=== PATIENT | female | born 1940 | race Caucasian/White ===

== ENCOUNTER 2017-12-16 14:35 | Inpatient (IN) | payer MEDICARE, OTHER, MEDICAID, SELFPAY ==
[2017-12-16 14:36] VITALS: BP 186/88; PULSE 102; RESP 18; TEMP 36.8; O2SAT 95; BMI 26.4
[2017-12-16 14:37] VITALS: BMI 26.4
--- NOTE | 2017-12-16 14:39 | CT_ITS ---
CT head/brain wo con HISTORY: Slurred speech, ITS.REASON: slurred speech ORDERING PHYSICIAN: Everton Garcia MD PATIENT AGE: 77 years COMPARISON: 07/03/2016 TECHNIQUE: Axial images obtained without contrast. Brain and bone windows reviewed. All CT scans at the facility use one or more dose reduction, viz: automated exposure control; ma/kV adjustment per patient size (including targeted exams where dose is matched to indication; i.e. head); or iterative reconstruction technique. FINDINGS: No midline shift, mass effect, intracranial hemorrhage, hydrocephalus, or extra-axial fluid collection is evident. There is generalized atrophy with hypoattenuation in the periventricular region consistent with ischemic gliotic change from microvascular disease. Scattered low density changes are present in the basal ganglia with old appearing infarctions. No acute intra or extra-axial hemorrhage is evident. The calvarium has an unremarkable appearance. No mastoid effusion. No sinus air-fluid levels.. IMPRESSION: 1. No acute intracranial hemorrhage. 2. Atrophy with chronic ischemic changes. 3. There is no evidence of intracranial hemorrhage, focal mass, or acute territorial infarction. A negative CT does not exclude an acute CVA. A follow-up head CT or MRI is recommended if neurological symptoms persist .
--- NOTE | 2017-12-16 14:40 | HMH.EDGENADL ---
ED Disposition Referrals: Jason Conway MD [Primary Care Provider] - Attestation: On 12/16/17, the high probability of a clinically significant, sudden or life threatening deterioration of the following system(s) required my full and direct attention, intervention and personal management. The time I documented below is in addition to time spent performing reported procedures but includes the following listed in this critical care notation. Medical Decision Making Vital Signs: 12/16/17 14:36 Temperature 98.3 F Temperature Source Oral Pulse Rate [Right Brachial] 102 H Respiratory Rate 18 Blood Pressure [rigth arm] 186/88 Blood Pressure Mean [rigth arm] 120 Blood Pressure Source [rigth arm] Automatic Cuff Blood Pressure Position [rigth arm] Supine 02 Sat by Pulse Oximetry 95 Oxygen Delivery Method Room Air Orders (Tests/Meds): ORDERS Category Date Time Status CT head/brain wo con Stat Cat Scan 12/16/17 14:39 Ordered Cardiac Enzymes Stat Lab 12/16/17 14:39 Ordered Complete Blood Count Auto Diff Stat Lab 12/16/17 14:39 Ordered Comprehensive Metabolic Panel Stat Lab 12/16/17 14:39 Ordered 12-lead EKG Request [ECG Request by /Enmanuel] Stat Y 12/16/17 14:39 Ordered General Adult HPI - General Chief complaint: Weakness Stated complaint: weakness Time Seen by Provider: 12/16/17 14:41 - Related Data Home Medications Medication Instructions Recorded Confirmed acetaminophen 500 mg capsule 500 mg PO Q6H PRN 12/01/17 amlodipine 10 mg tablet 10 mg PO ONCE 12/01/17 amlodipine 5 mg tablet 5 mg PO ONCE 12/01/17 aspirin 81 mg tablet,delayed 81 mg PO ONCE 12/01/17 release digoxin 125 mcg tablet 125 mcg PO ONCE 12/01/17 gabapentin 100 mg capsule 100 mg PO QHS 12/01/17 insulin glargine (U-300) 300 15 unit SUB-Q QHS 12/01/17 unit/mL (1.5 mL) subcutaneous pen lisinopril 20 mg tablet 20 mg PO ONCE 12/01/17 metformin 500 mg tablet 500 mg PO BID 12/01/17 omeprazole 20 mg capsule,delayed 20 mg PO ONCE 12/01/17 release ondansetron HCl 4 mg tablet 4 mg PO Q4H 12/01/17 polyethylene glycol 3350 17 17 g PO Q10M 12/01/17 gram/dose oral powder sennosides 8.6 mg-docusate sodium 1 tab PO QHS PRN 12/01/17 50 mg tablet sitagliptin 100 mg tablet 100 mg PO ONCE 12/01/17 trazodone 50 mg tablet 50 mg PO QHS PRN 12/01/17 trolamine salicylate 10 % topical 1 applic TOPICAL TID 12/01/17 cream tuberculin PPD 5 tub. unit/0.1 mL 0.1 ml INTRADERMA ONCE 12/01/17 intradermal injection solution Allergies Allergy/AdvReac Type Severity Reaction Status Date / Time No Known Allergies Allergy Verified 12/01/17 08:41 [facility] History Medical History: Reports:: Diabetes Mellitus Type 2, Hypertension Other Surgeries: Yes: Tubal Ligation Amputation: No Fractures: No Comment: gallbladder - Social History Smoking Status: Never smoker Alcohol Intake: never Substance Use Type: denies use Family Hx:: Hypertension, Hyperlipidemia, Cancer, Diabetes
--- NOTE | 2017-12-16 14:50 | PC.NURSE ---
to ct at this time, stroke protocol
--- NOTE | 2017-12-16 14:54 | HMH.EDGENADL ---
ED Disposition Clinical Impression: TIA (transient ischemic attack) Qualifiers: Transient cerebral ischemia type: unspecified Qualified Code(s): G45.9 - Transient cerebral ischemic attack, unspecified UTI (urinary tract infection) Qualifiers: Urinary tract infection type: site unspecified Hematuria presence: without hematuria Qualified Code(s): N39.0 - Urinary tract infection, site not specified Disposition: Still a Patient Condition on Discharge: Good - Critical Care Critical Care Time: No Attestation: On 12/16/17, the high probability of a clinically significant, sudden or life threatening deterioration of the following system(s) required my full and direct attention, intervention and personal management. The time I documented below is in addition to time spent performing reported procedures but includes the following listed in this critical care notation. Medical Decision Making - Tyler Inquiry Pt receiving controlled substance: No Vital Signs: 12/16/17 14:36 12/16/17 16:52 12/16/17 17:46 Temperature 98.3 F 98.2 F Temperature Source Oral Oral Pulse Rate [Right Brachial] 102 H 102 H Respiratory Rate 18 20 Blood Pressure [rigth arm] 186/88 161/83 Blood Pressure Mean [rigth arm] 120 109 Blood Pressure Source [rigth arm] Automatic Cuff Automatic Cuff Blood Pressure Position [rigth arm] Supine Supine 02 Sat by Pulse Oximetry 95 96 Oxygen Delivery Method Room Air Room Air Room Air 12/16/17 18:15 Temperature Temperature Source Pulse Rate [Right Brachial] Respiratory Rate Blood Pressure [rigth arm] Blood Pressure Mean [rigth arm] Blood Pressure Source [rigth arm] Blood Pressure Position [rigth arm] 02 Sat by Pulse Oximetry Oxygen Delivery Method Room Air - Lab Data Lab Results 12/16/17 14:40: WBC 6.9, RBC 3.54 L, Hgb 11.1 L, Hct 33.8 L, MCV 95.4, MCH 31.4 H, MCHC 32.9, RDW 13.6, Plt Count 274, MPV 7.1 L, Neut % (Auto) 42.2, Lymph % (Auto) 47.2, [place] % (Auto) 5.4, Eos % (Auto) 4.5, Baso % (Auto) 0.7, Neut # (Auto) 2.9, Lymph # (Auto) 3.3, [place] # (Auto) 0.4, Eos # (Auto) 0.3, Baso # (Auto) 0.1 12/16/17 14:40: Sodium 135 L, Potassium 4.2, Chloride 101, Carbon Dioxide 22, Anion Gap 16.2 H, BUN 25 H, Creatinine 1.48 H, Estimated Creat Clear 35, Estimated GFR 34 L, Est GFR ( Amer) 41 L, Glucose 338 H, Calcium 8.3 L, Total Bilirubin 0.4, AST 8 L, ALT 24, Alkaline Phosphatase 98, Total Creatine Kinase 66, CK-MB (CK-2) 0.5, CK-MB (CK-2) Rel Index 0.8, Troponin I < 0.02, Total Protein 7.9, Albumin 3.4, Globulin 4.5 H, Albumin/Globulin Ratio 0.8 L 12/16/17 14:40: PT 10.0, INR 0.93, APTT 26.8 12/16/17 14:40: Digoxin 0.50 L 12/16/17 14:40: TSH 2.31, Free T4 Index 1.9 L, Thyroxine (T4) 5.9, T3 Uptake 32 12/16/17 16:00: Urine Color Yellow, Urine Appearance Sl cloudy, Urine pH 5.5, Ur Specific [place] 1.020, Urine Protein Negative, Urine Glucose (UA) Trace, Urine Ketones Negative, Urine Blood Negative, Urine Nitrate Negative, Urine Bilirubin Negative, Urine Urobilinogen 0.2, Ur Leukocyte Esterase 1+ A, Urine RBC None, Urine WBC 20-50, Ur Squamous Epith Cells Occasional, Urine Bacteria 2+ Result diagrams: 12/16/17 14:40 12/16/17 14:40 Orders (Tests/Meds): ED MEDICATIONS Generic Name Dose Route Start Last Admin Trade Name Rick PRN Reason Stop Dose Admin Amlodipine Besylate 5 mg 12/17/17 09:00 Norvasc 5mg Tablet PO 01/16/18 08:59 DAILY SHEA Amlodipine Besylate 10 mg 12/17/17 09:00 Norvasc 10mg Tablet PO 01/16/18 08:59 DAILY SHEA Aspirin 325 mg 12/17/17 09:00 Aspirin Ec 325mg Tablet PO 01/16/18 08:59 DAILY SHEA Digoxin 125 mcg 12/17/17 09:00 Digoxin 0.125mg Tablet PO 01/16/18 08:59 DAILY SHEA Gabapentin 100 mg 12/16/17 16:52 Neurontin 100mg Capsule PO 01/15/18 16:44 QHS SHEA Ceftriaxone Sodium 1 gm/ 50 mls @ 100 mls/hr 12/17/17 16:45 Sodium Chloride IV 12/30/17 16:44 Q24H SHEA Protocol Insulin H
[2017-12-16 14:56] LABS: Basophils # 0.1 K/mm3 (0-0.2); Basophils % 0.7 % (0.1-2.0); Eosinophils # 0.3 K/mm3 (0.0-0.4); Eosinophils % 4.5 % (0.1-12.0); Hematocrit 33.8 % (37.0-47.0); Hemoglobin 11.1 g/dL (12.2-16.2); Lymphocytes # 3.3 K/mm3 (0.7-4.5); Lymphocytes % 47.2 K/mm3 (10-50); Mean Corpuscular HGB Conc 32.9 g/dL (31.8-35.4); Mean Corpuscular Hemoglobin 31.4 pg (27.0-31.2); Mean Corpuscular Volume 95.4 fl (81-99); Mean Platelet Volume 7.1 fl (7.4-10.4); Monocytes # 0.4 K/mm3 (0.1-1.0); Monocytes % 5.4 % (1.7-9.3); Neutrophils # 2.9 K/mm3 (1.8-7.8); Neutrophils % 42.2 % (37.0-80.0); Platelet Count 274 K/mm3 (142-424); Red Blood Count 3.54 M/mm3 (4.20-5.40); Red Cell Distribution Width 13.6 % (11.5-17.5); White Blood Count 6.9 K/mm3 (4.8-10.8)
--- NOTE | 2017-12-16 14:58 | ED_ITS ---
ED Disposition Clinical Impression: TIA (transient ischemic attack) Qualifiers: Transient cerebral ischemia type: unspecified Qualified Code(s): G45.9 - Transient cerebral ischemic attack, unspecified UTI (urinary tract infection) Qualifiers: Urinary tract infection type: site unspecified Hematuria presence: without hematuria Qualified Code(s): N39.0 - Urinary tract infection, site not specified Disposition: Still a Patient Condition on Discharge: Good - Critical Care Critical Care Time: No Attestation: On 12/16/17, the high probability of a clinically significant, sudden or life threatening deterioration of the following system(s) required my full and direct attention, intervention and personal management. The time I documented below is in addition to time spent performing reported procedures but includes the following listed in this critical care notation. Medical Decision Making - Tyler Inquiry Pt receiving controlled substance: No Vital Signs: 12/16/17 14:36 12/16/17 16:52 12/16/17 17:46 Temperature 98.3 F 98.2 F Temperature Source Oral Oral Pulse Rate [Right Brachial] 102 H 102 H Respiratory Rate 18 20 Blood Pressure [rigth arm] 186/88 161/83 Blood Pressure Mean [rigth arm] 120 109 Blood Pressure Source [rigth arm] Automatic Cuff Automatic Cuff Blood Pressure Position [rigth arm] Supine Supine 02 Sat by Pulse Oximetry 95 96 Oxygen Delivery Method Room Air Room Air Room Air 12/16/17 18:15 Temperature Temperature Source Pulse Rate [Right Brachial] Respiratory Rate Blood Pressure [rigth arm] Blood Pressure Mean [rigth arm] Blood Pressure Source [rigth arm] Blood Pressure Position [rigth arm] 02 Sat by Pulse Oximetry Oxygen Delivery Method Room Air - Lab Data Lab Results 12/16/17 14:40: WBC 6.9, RBC 3.54 L, Hgb 11.1 L, Hct 33.8 L, MCV 95.4, MCH 31.4 H, MCHC 32.9, RDW 13.6, Plt Count 274, MPV 7.1 L, Neut % (Auto) 42.2, Lymph % ( Auto) 47.2, [place] % (Auto) 5.4, Eos % (Auto) 4.5, Baso % (Auto) 0.7, Neut # (Auto ) 2.9, Lymph # (Auto) 3.3, [place] # (Auto) 0.4, Eos # (Auto) 0.3, Baso # (Auto) 0.1 12/16/17 14:40: Sodium 135 L, Potassium 4.2, Chloride 101, Carbon Dioxide 22, Anion Gap 16.2 H, BUN 25 H, Creatinine 1.48 H, Estimated Creat Clear 35, Estimated GFR 34 L, Est GFR ( Amer) 41 L, Glucose 338 H, Calcium 8.3 L, Total Bilirubin 0.4, AST 8 L, ALT 24, Alkaline Phosphatase 98, Total Creatine Kinase 66, CK-MB (CK-2) 0.5, CK-MB (CK-2) Rel Index 0.8, Troponin I < 0.02, Total Protein 7.9, Albumin 3.4, Globulin 4.5 H, Albumin/Globulin Ratio 0.8 L 12/16/17 14:40: PT 10.0, INR 0.93, APTT 26.8 12/16/17 14:40: Digoxin 0.50 L 12/16/17 14:40: TSH 2.31, Free T4 Index 1.9 L, Thyroxine (T4) 5.9, T3 Uptake 32 12/16/17 16:00: Urine Color Yellow, Urine Appearance Sl cloudy, Urine pH 5.5, Ur Specific [place] 1.020, Urine Protein Negative, Urine Glucose (UA) Trace, Urine Ketones Negative, Urine Blood Negative, Urine Nitrate Negative, Urine Bilirubin Negative, Urine Urobilinogen 0.2, Ur Leukocyte Esterase 1+ A, Urine RBC None, Urine WBC 20-50, Ur Squamous Epith Cells Occasional, Urine Bacteria 2+ Result diagrams: 12/16/17 14:40 12/16/17 14:40 Orders (Tests/Meds): ED MEDICATIONS Generic Name Dose Route Start Last Admin Trade Name Freq PRN Reason Stop Dose Admin Amlodipine Besylate 5 mg 12/17/17 09:00 Norvasc 5mg
--- NOTE | 2017-12-16 15:00 | PC.NURSE ---
calls stroke alert at this time. rust: 8
--- NOTE | 2017-12-16 15:01 | PC.NURSE ---
call placed to [facility]
--- NOTE | 2017-12-16 15:04 | PC.NURSE ---
on phone with dr itz colin
--- NOTE | 2017-12-16 15:18 | PC.NURSE ---
call placed to dr esteves
[2017-12-16 15:20] LABS: Activated Partial Thrombo Time 26.8 seconds (23.6-34.0); INR 0.93 (0.9-1.1)
--- NOTE | 2017-12-16 15:23 | PC.NURSE ---
on phone with dr esteves
--- NOTE | 2017-12-16 15:26 | XR_ITS ---
XR chest portable HISTORY: Slurred speech ITS.REASON: stroke symptoms ORDERING PHYSICIAN: Jason Conway MD PATIENT AGE: 77 years COMPARISON: None available FINDINGS: Normal heart size. There is some increased density in the paratracheal region on both sides consistent with goiter as seen on a previous C-spine CT of 07/03/2016. No lobar consolidation or collapse. No acute bony anomalies. IMPRESSION: No acute finding. Prominent paratracheal density consistent with goiter
[2017-12-16 15:30] LABS: Albumin Level 3.4 gm/dL (3.4-5.0); Albumin/Globulin Ratio 0.8 (1.1-1.8); Alkaline Phosphatase 98 U/L (46-116); Anion Gap 16.2 mEq/L (5-15); Bilirubin,Total 0.4 mg/dL (0.2-1.0); Blood Urea Nitrogen 25 mg/dL (7-18); CKMB Relative Index 0.8 U/L (0-4.0); Calcium 8.3 mg/dL (8.5-10.1); Carbon Dioxide 22 mmol/L (21.0-32.0); Chloride 101 mmol/L (98-107); Creatine Kinase 66 U/L (26-192); Creatine Kinase MB 0.5 ng/ml (0.0-3.6); Creatinine Clearance Estimated 35 mL/min (0-300); Creatinine,Serum 1.48 mg/dL (0.55-1.02); Estimated Glomerular Filt Rate 34 ml/min (>60); GFR (African American) 41 ML/MIN (>60); Globulin 4.5 gm/dl (1.3-3.2); Sodium 135 mmol/L (136-145); Total Protein,Serum 7.9 gm/dL (6.4-8.2); Troponin I < 0.02 ng/ml (0.00-0.06)
[2017-12-16 15:59] LABS: Free Thyroxine Index 1.9 ug/dL (5.93-13.13); T4 (Thyroxine) 5.9 ug/dl (4.7-13.3); Thyroid Stimulating Hormone 2.31 uIU/ml (0.358-3.740); Triiodothryronine (T3) Uptake 32 % (31-39)
[2017-12-16 16:02] LABS: Microscopic, Urine URINE MICROSCOPIC (MICROSCOPIC)
[2017-12-16 16:03] LABS: Appearance,Urine SL CLOUDY (Clear); Bilirubin,Urine Negative (Negative); Blood, Urine Negative (Negative); Color,Urine YELLOW (Yellow); Glucose,Urine (UA) TRACE (Negative); Ketones,Urine Negative (Negative); Leukocyte Esterase,Urine 1+ (Negative); Nitrate,Urine Negative (Negative); PH,Urine 5.5 (5.0-8.5); Protein,Urine Negative (Negative); Urobilinogen,Urine 0.2 EU/dl (0.2)
[2017-12-16 16:16] LABS: Glucose 338 mg/dL (74-106)
[2017-12-16 16:21] LABS: Alanine Aminotransferase 24 U/L (12-78)
[2017-12-16 16:22] VITALS: BMI 25.6
[2017-12-16 16:26] LABS: Potassium 4.2 mmoL/L (3.5-5.1)
[2017-12-16 16:27] LABS: Bacteria,Urine 2+ /lpf; Squamous Epithelial Cell,Urine Occasional #/hpf (0-5); WBC,Urine 20-50 #/hpf (0-3)
[2017-12-16 16:32] LABS: Aspartate Amino Transferase 8 U/L (15-37)
[2017-12-16 16:52] VITALS: BP 161/83; PULSE 102; RESP 20; TEMP 36.8; O2SAT 96
[2017-12-16 18:19] VITALS: BP 126/85; PULSE 80; RESP 18; TEMP 36.7; O2SAT 99
[2017-12-16 20:00] VITALS: BP 149/85; PULSE 97; RESP 16; TEMP 37.3; O2SAT 95
[2017-12-16 21:00] VITALS: O2SAT 95
[2017-12-16 21:42] LABS: POC Glucose,Bedside 215 mg/dL (70-110)
[2017-12-17] VITALS (8 sets, daily range): BP systolic 139–185; BP diastolic 73–89; PULSE 89–98; RESP 16–18; TEMP 37–37.5; O2SAT 95–96
--- NOTE | 2017-12-17 05:28 | PC.NURSE ---
Pt has rested well this shift with no complaints of pain or discomfort. Pt speech continues to be slurred but able to make out the words. Pt is alert to name, , and place but cannot recall the year. Pt is stronger on the left side than the right, she states she is normally like this. PERRLA present. Lung sounds clear t/o. BS active in all 4 qauds. VSS. No acute distress noted. Will continue to monitor.
[2017-12-17 06:34] LABS: POC Glucose,Bedside 205 mg/dL (70-110)
--- NOTE | 2017-12-17 07:27 | PC.NURSE ---
angie mcgraw rn
--- NOTE | 2017-12-17 09:33 | HMH.HP ---
*Admission Date: 12/16/17 *Chief complaint: Right-sided weakness and dysarthria *History of present illness: 87-year-old white female with known stroke disease with history of right-sided hemiparesis who has been a resident of local nursing facility over the past several months, who yesterday morning was noted by nursing aides there to have some increasing speech issues, dysarthria and word finding difficulties and right-sided weakness. Was sent to the emergency department. In the emergency department her symptoms had somewhat improved, CT scan was negative for bleeding, she was found to be hypertensive. [facility] stroke team was consulted, they felt that aggressive measures were not indicated in her situation and her family did not wish her to be transferred to [place]. She is admitted here to the hospital for further evaluation. [facility] History I have reviewed the patient's past medical history: Yes Medical History: Reports:: Atrial Fibrillation, Cerebrovascular Accident, Diabetes Mellitus Type 2, Hyperlipidemia, Hypertension, Transient Ischemic Attacks (TIA) Denies:: Cancer, Diabetes Mellitus Type 1, MRSA Other Medical History: Reports: Arthritis, Hypothyroidism Other Surgeries: Yes: Colonoscopy, EGD, Tubal Ligation Amputation: No Fractures: No Comment: Stroke with residual right-sided weakness - *Social History Educational Level: Completed High School Smoking Status: Unknown if ever smoked Tobacco Type: cigarettes Alcohol Intake: never Substance Use Type: denies use Occupational Status: retired, disabled Housing: senior living Household Members: other - Psychiatric History Expresses thoughts of harming self/others: None Suicide Plan Description: No Plan *Family Hx:: Hypertension, Hyperlipidemia, Cancer, Diabetes Review of Systems - Review of Systems Negative for cardiac or pulmonary issues. Negative for pains, GI issues or breathing difficulties. No skin rashes recently. See HPI for neuro issues - *Neurologic Denies headache(s) Meds Home Medications Medication Instructions Recorded Confirmed Type acetaminophen 500 mg capsule 500 mg PO Q6H PRN 12/01/17 12/16/17 History amlodipine 10 mg tablet 10 mg PO ONCE 12/01/17 12/16/17 History amlodipine 5 mg tablet 5 mg PO ONCE 12/01/17 12/16/17 History aspirin 81 mg tablet,delayed 81 mg PO ONCE 12/01/17 12/16/17 History release digoxin 125 mcg tablet 125 mcg PO ONCE 12/01/17 12/16/17 History gabapentin 100 mg capsule 100 mg PO QHS 12/01/17 12/16/17 History insulin glargine (U-300) 300 15 unit SUB-Q QHS 12/01/17 12/16/17 History unit/mL (1.5 mL) subcutaneous pen lisinopril 20 mg tablet 20 mg PO ONCE 12/01/17 12/16/17 History metformin 500 mg tablet 500 mg PO BID 12/01/17 12/16/17 History omeprazole 20 mg capsule,delayed 20 mg PO ONCE 12/01/17 12/16/17 History release ondansetron HCl 4 mg tablet 4 mg PO Q4H 12/01/17 12/16/17 History polyethylene glycol 3350 17 17 g PO Q10M 12/01/17 12/16/17 History gram/dose oral powder sennosides 8.6 mg-docusate sodium 1 tab PO QHS PRN 12/01/17 12/16/17 History 50 mg tablet sitagliptin 100 mg tablet 100 mg PO ONCE 12/01/17 12/16/17 History trazodone 50 mg tablet 50 mg PO QHS PRN 12/01/17 12/16/17 History trolamine salicylate 10 % topical 1 applic TOPICAL TID 12/01/17 12/16/17 History cream tuberculin PPD 5 tub. unit/0.1 mL 0.1 ml INTRADERMA ONCE 12/01/17 12/16/17 History intradermal injection solution Allergies Allergy/AdvReac Type Severity Reaction Status Date / Time No Known Allergies Allergy Verified 12/01/17 08:41 Exam Vital signs and Labs for Last 24 Hours: Temp Pulse Resp BP Pulse Ox 98.6 F 98 H 16 158/78 95 12/17/17 07:29 12/17/17 07:29 12/17/17 07:29 12/17/17 07:29 12/17/17 07:29 Laboratory Results - last 24 hr 12/16/17 20:52: POC Glucose 215 12/17/17 06:11: POC Glucose 205 I & O for Last 24 hours: Intake & Output 12/14/17 12/15/17 12/16/17 12/17/17 11:59 11:
--- NOTE | 2017-12-17 09:36 | P.HP_ITS ---
*Admission Date: 12/16/17 *Chief complaint: Right-sided weakness and dysarthria *History of present illness: 87-year-old white female with known stroke disease with history of right-sided hemiparesis who has been a resident of local nursing facility over the past several months, who yesterday morning was noted by nursing aides there to have some increasing speech issues, dysarthria and word finding difficulties and right-sided weakness. Was sent to the emergency department. In the emergency department her symptoms had somewhat improved, CT scan was negative for bleeding , she was found to be hypertensive. [facility] stroke team was consulted, they felt that aggressive measures were not indicated in her situation and her family did not wish her to be transferred to [place]. She is admitted here to the hospital for further evaluation. [facility] History I have reviewed the patient's past medical history: Yes Medical History: Reports:: Atrial Fibrillation, Cerebrovascular Accident, Diabetes Mellitus Type 2, Hyperlipidemia, Hypertension, Transient Ischemic Attacks (TIA) Denies:: Cancer, Diabetes Mellitus Type 1, MRSA Other Medical History: Reports: Arthritis, Hypothyroidism Other Surgeries: Yes: Colonoscopy, EGD, Tubal Ligation Amputation: No Fractures: No Comment: Stroke with residual right-sided weakness - *Social History Educational Level: Completed High School Smoking Status: Unknown if ever smoked Tobacco Type: cigarettes Alcohol Intake: never Substance Use Type: denies use Occupational Status: retired, disabled Housing: [facility] Household Members: other - Psychiatric History Expresses thoughts of harming self/others: None Suicide Plan Description: No Plan *Family Hx:: Hypertension, Hyperlipidemia, Cancer, Diabetes Review of Systems - Review of Systems Negative for cardiac or pulmonary issues. Negative for pains, GI issues or breathing difficulties. No skin rashes recently. See HPI for neuro issues - *Neurologic Denies headache(s) Meds Home Medications Medication Instructions Recorded Confirmed Type acetaminophen 500 mg capsule 500 mg PO Q6H PRN 12/01/17 12/16/17 History amlodipine 10 mg tablet 10 mg PO ONCE 12/01/17 12/16/17 History amlodipine 5 mg tablet 5 mg PO ONCE 12/01/17 12/16/17 History aspirin 81 mg tablet,delayed 81 mg PO ONCE 12/01/17 12/16/17 History release digoxin 125 mcg tablet 125 mcg PO ONCE 12/01/17 12/16/17 History gabapentin 100 mg capsule 100 mg PO QHS 12/01/17 12/16/17 History insulin glargine (U-300) 300 15 unit SUB-Q QHS 12/01/17 12/16/17 History unit/mL (1.5 mL) subcutaneous pen lisinopril 20 mg tablet 20 mg PO ONCE 12/01/17 12/16/17 History metformin 500 mg tablet 500 mg PO BID 12/01/17 12/16/17 History omeprazole 20 mg capsule,delayed 20 mg PO ONCE 12/01/17 12/16/17 History release ondansetron HCl 4 mg tablet 4 mg PO Q4H 12/01/17 12/16/17 History polyethylene glycol 3350 17 17 g PO Q10M 12/01/17 12/16/17 History gram/dose oral powder sennosides 8.6 mg-docusate sodium 1 tab PO QHS PRN 12/01/17 12/16/17 History 50 mg tablet sitagliptin 100 mg tablet 100 mg PO ONCE 12/01/17 12/16/17 History trazodone 50 mg tablet 50 mg PO QHS PRN 12/01/17 12/16/17 History trolamine salicylate 10 % topical 1 applic TOPICAL TID 12/01/17 12/16/17 History cream tuberculin PPD 5 tub. unit/0.1 mL 0.1 ml INTRADERMA ONCE 12/01/17 12/16/17 History intradermal injection solution Allergie
--- NOTE | 2017-12-17 10:08 | HMH.ACPN2 ---
Internal Medicine - PN: Subj *Date: 12/17/17 *Time: 10:08 Interval history: Patient rested well, ate well last night, no problems chewing or swallowing her food according to nursing staff. Has a headache this morning. Exam Vital signs and Labs for Last 24 Hours: Temp Pulse Resp BP Pulse Ox 98.6 F 98 H 16 158/78 95 12/17/17 07:29 12/17/17 09:51 12/17/17 07:29 12/17/17 07:29 12/17/17 07:29 Laboratory Results - last 24 hr 12/16/17 20:52: POC Glucose 215 12/17/17 06:11: POC Glucose 205 I & O for Last 24 hours: Intake & Output 12/14/17 12/15/17 12/16/17 12/17/17 11:59 11:59 11:59 11:59 Intake Total Balance Narrative: Blood pressure well controlled, patient is alert, follows commands, right facial drooping continues. Right-sided hemiparesis continues. She is able to leadership program associate markedly diminished strength in the right hand, able to slightly lift her right leg off the bed, but otherwise continues to have significant muscle weakness. 2/5 in the right arm, 3/5 in the right leg. Lungs are clear, heart rate regular. Abdomen soft, no swelling or perfusion deficits. Assessment and Plan (1) Ischemic stroke diagnosed during current admission Current visit: Yes Status: Acute Category: Medical Code(s): I63.9 - Cerebral infarction, unspecified Completed stroke. Repeat CT scan tomorrow. Watch diet carefully today. Lovenox today. We will research which anticoagulation agent she had a problem with in 2014. Consider clopidogrel given failed aspirin therapy. (2) Hypertension, essential Current visit: Yes Status: Acute Category: Medical Code(s): I10 - Essential (primary) hypertension (3) TIA (transient ischemic attack) Current visit: Yes Status: Acute Qualifiers: Transient cerebral ischemia type: unspecified Qualified Code(s): G45.9 - Transient cerebral ischemic attack, unspecified Category: Medical Code(s): G45.9 - Transient cerebral ischemic attack, unspecified (4) UTI (urinary tract infection) Current visit: Yes Status: Acute Qualifiers: Urinary tract infection type: site unspecified Hematuria presence: without hematuria Qualified Code(s): N39.0 - Urinary tract infection, site not specified Category: Medical Code(s): N39.0 - Urinary tract infection, site not specified Continue ceftriaxone. Await cultures.
--- NOTE | 2017-12-17 11:19 | HMH.PHAVTE ---
[facility] Pharmacy VTE Monitoring - Patient Demographics Admission date: 12/16/17 Report Date: 12/17/17 Time: 11:19 Allergies/Adverse Reactions: Patient Allergies No Known Allergies Allergy (Verified 12/01/17 08:41) Height: 1.65 m Weight: 69.85 kg Patient Problems: Current Active Problems TIA (transient ischemic attack) (Acute) UTI (urinary tract infection) (Acute) Ischemic stroke diagnosed during current admission (Acute) Hypertension, essential (Acute) - VTE Risk Labs: VTE Related Lab Results Hgb 11.1 g/dL (12.2-16.2) L 12/16/17 14:40 Hct 33.8 % (37.0-47.0) L 12/16/17 14:40 Plt Count 274 K/mm3 (142-424) 12/16/17 14:40 PT 10.0 seconds (9.4-11.8) 12/16/17 14:40 INR 0.93 (0.9-1.1) 12/16/17 14:40 APTT 26.8 seconds (23.6-34.0) 12/16/17 14:40 BUN 25 mg/dL (7-18) H 12/16/17 14:40 Creatinine 1.48 mg/dL (0.55-1.02) H 12/16/17 14:40 Estimated Creat Clear 35 mL/min (0-300) 12/16/17 14:40 Was VTE Risk Assessment Performed: Yes VTE Score: 3 VTE Risk Level: Low Risk - Prophylaxis VTE Prophylaxis Ordered?: Yes Types of VTE Prophylaxis: Pharmacological Pharmacologic Type: Enoxaparin - VTE Diagnosis Confirmed Treatment or plan recommended: Continue Current Treatment
[2017-12-17 11:51] LABS: POC Glucose,Bedside 190 mg/dL (70-110)
[2017-12-17 17:03] LABS: POC Glucose,Bedside 201 mg/dL (70-110)
[2017-12-17 21:37] LABS: POC Glucose,Bedside 208 mg/dL (70-110)
--- NOTE | 2017-12-17 21:53 | PC.NURSE ---
PT REFUSED 2200 LOVENOX. RN ASKED PT X5. PT STATED THE SHOT WON'T HURT BECAUSE I'M NOT LETTING YOU GIVE IT TO ME. THE BENEFITS OF THE MEDICATION DISCUSSED WITH PATIENT. PT CONTINUED TO REFUSE MEDICATION. WILL CONTINUE TO MONITOR.
[2017-12-18] VITALS (8 sets, daily range): BP systolic 138–188; BP diastolic 67–88; PULSE 85–698; RESP 17–24; TEMP 36.9–37.4; O2SAT 94–96
--- NOTE | 2017-12-18 03:33 | PC.NURSE ---
PT HAS RESTED WELL DURING SHIFT. PT REQUESTED TRAZODONE PRN FOR SLEEP AT 2100 DecideQuick. PT REFUSED 2200 LOVENOX. BENEFITS OF MEDICATION EXPLAINED, RN ASKED PT X5. PT CONTINUED TO REFUSE INJECTION. PT STATED THE SHOT WONT HURT ME BECAUSE I'M NOT LETTING YOU GIVE IT TO ME. PT IS ALERT AND ORIENTED X4. LEFT SIDE STRONGER THAN RIGHT, BASELINE. PERRLA PRESENT. LUNG SOUNDS CLEAR THROUGHOUT. BOWEL SOUNDS ACTIVE IN ALL 4 QUADS. PT DENIES PAIN. VSS. NO ACUTE DISTRESS. SAFETY MEASURES IN PLACE, CALL LIGHT WITHIN REACH. WILL CONTINUE TO MONITOR.
[2017-12-18 06:43] LABS: POC Glucose,Bedside 246 mg/dL (70-110)
--- NOTE | 2017-12-18 07:00 | CT_ITS ---
CT head/brain wo con HISTORY: Right-sided hemiparesis, right-sided weakness ITS.REASON: re-eval CVA - right hemiparesis ORDERING PHYSICIAN: Jason Conway MD PATIENT AGE: 77 years COMPARISON: 12/16/2017 TECHNIQUE: Axial images obtained without contrast. Brain and bone windows reviewed. All CT scans at the facility use one or more dose reduction, viz: automated exposure control; ma/kV adjustment per patient size (including targeted exams where dose is matched to indication; i.e. head); or iterative reconstruction technique. FINDINGS: There is atrophy with periventricular ischemic gliotic change. Old bilateral lacunar infarctions once again noted. No midline shift or mass effect. No acute intracranial hemorrhage. No large area of acute territorial infarction identified. IMPRESSION: 1. Atrophy with chronic ischemic changes 2. No acute findings. 3. Consider MRI with diffusion-weighted imaging for further evaluation if symptoms persist
[2017-12-18 07:20] LABS: Basophils % 0.5 % (0.1-2.0); Eosinophils # 0.3 K/mm3 (0.0-0.4); Hematocrit 35.6 % (37.0-47.0); Hemoglobin 11.8 g/dL (12.2-16.2); Lymphocytes # 3.2 K/mm3 (0.7-4.5); Lymphocytes % 38.4 K/mm3 (10-50); Mean Corpuscular HGB Conc 33.1 g/dL (31.8-35.4); Mean Corpuscular Hemoglobin 31.4 pg (27.0-31.2); Mean Corpuscular Volume 94.8 fl (81-99); Mean Platelet Volume 7.2 fl (7.4-10.4); Monocytes # 0.4 K/mm3 (0.1-1.0); Monocytes % 4.6 % (1.7-9.3); Neutrophils # 4.3 K/mm3 (1.8-7.8); Neutrophils % 52.6 % (37.0-80.0); Platelet Count 273 K/mm3 (142-424); Red Blood Count 3.75 M/mm3 (4.20-5.40); Red Cell Distribution Width 13.8 % (11.5-17.5); White Blood Count 8.2 K/mm3 (4.8-10.8)
[2017-12-18 07:27] LABS: Anion Gap 15.4 mEq/L (5-15); Blood Urea Nitrogen 26 mg/dL (7-18); Carbon Dioxide 23 mmol/L (21.0-32.0); Chloride 102 mmol/L (98-107); Creatinine Clearance Estimated 37 mL/min (0-300); Creatinine,Serum 1.39 mg/dL (0.55-1.02); Estimated Glomerular Filt Rate 37 ml/min (>60); GFR (African American) 44 ML/MIN (>60); Glucose 241 mg/dL (74-106); Potassium 4.4 mmoL/L (3.5-5.1); Sodium 136 mmol/L (136-145)
--- NOTE | 2017-12-18 08:51 | HMH.ACPN2 ---
Internal Medicine - PN: Subj *Date: 12/18/17 *Time: 08:51 Interval history: Overall patient feels pretty good. Refused her Lovenox injection this morning. No further neurologic issues. Exam Vital signs and Labs for Last 24 Hours: Temp Pulse Resp BP Pulse Ox 99.0 F 90 18 188/88 96 12/18/17 07:38 12/18/17 08:04 12/18/17 07:38 12/18/17 07:38 12/18/17 07:38 Laboratory Results - last 24 hr 12/17/17 11:33: POC Glucose 190 12/17/17 16:42: POC Glucose 201 12/17/17 20:30: POC Glucose 208 12/18/17 05:30: POC Glucose 246 12/18/17 07:02: WBC 8.2, RBC 3.75 L, Hgb 11.8 L, Hct 35.6 L, MCV 94.8, MCH 31.4 H, MCHC 33.1, RDW 13.8, Plt Count 273, MPV 7.2 L, Neut % (Auto) 52.6, Lymph % (Auto) 38.4, [place] % (Auto) 4.6, Eos % (Auto) 4.0, Baso % (Auto) 0.5, Neut # (Auto) 4.3, Lymph # (Auto) 3.2, [place] # (Auto) 0.4, Eos # (Auto) 0.3, Baso # (Auto) 0.0 12/18/17 07:02: Sodium 136, Potassium 4.4, Chloride 102, Carbon Dioxide 23, Anion Gap 15.4 H, BUN 26 H, Creatinine 1.39 H, Estimated Creat Clear 37, Estimated GFR 37 L, Est GFR ( Amer) 44 L, Glucose 241 H I & O for Last 24 hours: Intake & Output 12/15/17 12/16/17 12/17/17 12/18/17 11:59 11:59 11:59 11:59 Intake Total 810 / 810 120 / 120 Balance 810 / 810 120 / 120 Weight 153 lb 15.886 oz Narrative: Pleasant, awake, talkative, right droop of the face noted. Continues to have a dense right hemiparesis of the arm, leg is slightly better, no changes over exam yesterday. Lungs are clear. Assessment and Plan (1) Ischemic stroke diagnosed during current admission Current visit: Yes Status: Acute Category: Medical Code(s): I63.9 - Cerebral infarction, unspecified (2) Hypertension, essential Current visit: Yes Status: Acute Category: Medical Code(s): I10 - Essential (primary) hypertension (3) TIA (transient ischemic attack) Current visit: Yes Status: Acute Qualifiers: Transient cerebral ischemia type: unspecified Qualified Code(s): G45.9 - Transient cerebral ischemic attack, unspecified Category: Medical Code(s): G45.9 - Transient cerebral ischemic attack, unspecified (4) UTI (urinary tract infection) Current visit: Yes Status: Acute Qualifiers: Urinary tract infection type: site unspecified Hematuria presence: without hematuria Qualified Code(s): N39.0 - Urinary tract infection, site not specified Category: Medical Code(s): N39.0 - Urinary tract infection, site not specified - Assessment and plan all Dx Assessment and Plan for all problems:: Patient is stable. Cautiously start clopidogrel today. Plan to transfer back to nursing facility for expanded PT/speech therapy tomorrow.
--- NOTE | 2017-12-18 08:55 | P.PN_ITS ---
Internal Medicine - PN: Subj *Date: 12/18/17 *Time: 08:51 Interval history: Overall patient feels pretty good. Refused her Lovenox injection this morning. No further neurologic issues. Exam Vital signs and Labs for Last 24 Hours: Temp Pulse Resp BP Pulse Ox 99.0 F 90 18 188/88 96 12/18/17 07:38 12/18/17 08:04 12/18/17 07:38 12/18/17 07:38 12/18/17 07:38 Laboratory Results - last 24 hr 12/17/17 11:33: POC Glucose 190 12/17/17 16:42: POC Glucose 201 12/17/17 20:30: POC Glucose 208 12/18/17 05:30: POC Glucose 246 12/18/17 07:02: WBC 8.2, RBC 3.75 L, Hgb 11.8 L, Hct 35.6 L, MCV 94.8, MCH 31.4 H, MCHC 33.1, RDW 13.8, Plt Count 273, MPV 7.2 L, Neut % (Auto) 52.6, Lymph % ( Auto) 38.4, [place] % (Auto) 4.6, Eos % (Auto) 4.0, Baso % (Auto) 0.5, Neut # (Auto ) 4.3, Lymph # (Auto) 3.2, [place] # (Auto) 0.4, Eos # (Auto) 0.3, Baso # (Auto) 0.0 12/18/17 07:02: Sodium 136, Potassium 4.4, Chloride 102, Carbon Dioxide 23, Anion Gap 15.4 H, BUN 26 H, Creatinine 1.39 H, Estimated Creat Clear 37, Estimated GFR 37 L, Est GFR ( Amer) 44 L, Glucose 241 H I & O for Last 24 hours: Intake & Output 12/15/17 12/16/17 12/17/17 12/18/17 11:59 11:59 11:59 11:59 Intake Total 810 / 810 120 / 120 Balance 810 / 810 120 / 120 Weight 153 lb 15.886 oz Narrative: Pleasant, awake, talkative, right droop of the face noted. Continues to have a dense right hemiparesis of the arm, leg is slightly better, no changes over exam yesterday. Lungs are clear. Assessment and Plan (1) Ischemic stroke diagnosed during current admission Current visit: Yes Status: Acute Category: Medical Code(s): I63.9 - Cerebral infarction, unspecified (2) Hypertension, essential Current visit: Yes Status: Acute Category: Medical Code(s): I10 - Essential (primary) hypertension (3) TIA (transient ischemic attack) Current visit: Yes Status: Acute Qualifiers: Transient cerebral ischemia type: unspecified Qualified Code(s): G45.9 - Transient cerebral ischemic attack, unspecified Category: Medical Code(s): G45.9 - Transient cerebral ischemic attack, unspecified (4) UTI (urinary tract infection) Current visit: Yes Status: Acute Qualifiers: Urinary tract infection type: site unspecified Hematuria presence: without hematuria Qualified Code(s): N39.0 - Urinary tract infection, site not specified Category: Medical Code(s): N39.0 - Urinary tract infection, site not specified - Assessment and plan all Dx Assessment and Plan for all problems:: Patient is stable. Cautiously start clopidogrel today. Plan to transfer back to nursing facility for expanded PT/speech therapy tomorrow.
[2017-12-18 11:27] LABS: POC Glucose,Bedside 361 mg/dL (70-110)
[2017-12-18 16:40] LABS: POC Glucose,Bedside 278 mg/dL (70-110)
[2017-12-18 21:03] LABS: POC Glucose,Bedside 248 mg/dL (70-110)
[2017-12-19] VITALS: BP 134/73; PULSE 89; RESP 22; TEMP 36.9; O2SAT 95
[2017-12-19 04:00] VITALS: BP 146/79; PULSE 89; RESP 20; TEMP 36.5; O2SAT 96
--- NOTE | 2017-12-19 04:24 | PC.NURSE ---
PT RESTED WELL THIS SHIFT. PT IS FLACCID TO RIGHT ARM, AND RIGHT LEG. PT IS A&O. NO ACUTE CHANGES THIS SHIFT. VSS. MEDS ADMIN PER MAR. NO OTHER CONCERNS AT THIS TIME, WILL CONT. TO MONITOR.
[2017-12-19 06:22] LABS: POC Glucose,Bedside 246 mg/dL (70-110)
--- NOTE | 2017-12-19 07:24 | PC.NURSE ---
REPORT GIVEN TO Prakash BLACK RN
[2017-12-19 07:52] VITALS: BP 141/68; PULSE 99; RESP 20; TEMP 37; O2SAT 97
--- NOTE | 2017-12-19 08:19 | HMH.DCSUM ---
General - General Admission date: 12/16/17 Discharge date: 12/19/17 HPI HPI: 87-year-old white female with known stroke disease with history of right-sided hemiparesis who has been a resident of local nursing facility over the past several months, who yesterday morning was noted by nursing aides there to have some increasing speech issues, dysarthria and word finding difficulties and right-sided weakness. Was sent to the emergency department. In the emergency department her symptoms had somewhat improved, CT scan was negative for bleeding, she was found to be hypertensive. [facility] stroke team was consulted, they felt that aggressive measures were not indicated in her situation and her family did not wish her to be transferred to [place]. She is admitted here to the hospital for further evaluation. Hospital Course Hospital Course: Patient was admitted, placed on neurologic monitoring. She had no further progression of her neurologic deficits, but unfortunately had really no improvement. She continued to have her right hemiparesis and right facial drooping throughout her hospital course, confirming the diagnosis of a completed ischemic stroke. CT scan was repeated 48 hours after admission, showing no bleeding, no significant change in her neurologic anatomy. She ate well, but was much weaker. Lovenox was started but she declined this because of the injection pain issues. Clopidogrel was started and she tolerated this well. This morning she is unchanged, she will be transferred back to her long-term. She will need aggressive skilled care for physical therapy/occupational/speech therapy. She will continue low-dose aspirin and clopidogrel, she will need CBC and BMP done in 4 days. She will maintain her DNR status. Objective Vital signs: Temp Pulse Resp BP Pulse Ox 98.6 F 99 H 20 141/68 97 12/19/17 07:52 12/19/17 07:52 12/19/17 07:52 12/19/17 07:52 12/19/17 07:52 Narrative: Patient is alert. Pleasant. Talkative. Right facial droop noted. Right arm hemiparesis noted. She has 2/5 strength, can squeeze my hand very lightly. Right leg has 3/5 strength. Is able to wiggle her toes. Can lift her leg very minimally against gravity. Strength is normal on the left side. Heart rate regular, lungs are clear, abdomen soft and nontender, no perfusion deficits. Results Labs on day of discharge: Labs from last 24 hours 12/19/17 12/18/17 12/18/17 06:11 20:12 16:14 POC Glucose 246 248 278 12/18/17 11:07 POC Glucose 361 DS: Diagnosis - Discharge Diagnosis (1) Ischemic stroke diagnosed during current admission Status: Acute (2) Hypertension, essential Status: Acute (3) TIA (transient ischemic attack) Status: Acute (4) UTI (urinary tract infection) Status: Acute Discharge Plan - Patient Discharge Instructions ACTIVITY: Continue current activity DIET: continue same diet - Follow up Plan Follow up with: Beth Coats APRN [Nurse Practitioner] - 12/27/17 Disposition: er [facility] Home Medications: Home Medications Medication Instructions Recorded Confirmed Type acetaminophen 500 mg capsule 500 mg PO BID 12/01/17 12/17/17 History amlodipine 10 mg tablet 10 mg PO DAILY 12/01/17 12/17/17 History digoxin 125 mcg tablet 125 mcg PO Q48H 12/01/17 12/17/17 History gabapentin 100 mg capsule 100 mg PO QHS 12/01/17 12/16/17 History insulin glargine (U-300) 300 16 unit SUB-Q HS 12/01/17 12/17/17 History unit/mL (1.5 mL) subcutaneous pen lisinopril 20 mg tablet 20 mg PO DAILY 12/01/17 12/17/17 History metformin 500 mg tablet 500 mg PO DAILY 12/01/17 12/17/17 History omeprazole 20 mg capsule,delayed 20 mg PO DAILY 12/01/17 12/17/17 History release ondansetron HCl 4 mg tablet 4 mg PO BIDP PRN 12/01/17 12/17/17 History polyethylene glycol 3350 17 17 g PO DAILY 12/01/17 12/17/17 History gram/dose oral powder sennosides 8.6 mg-docusate so
--- NOTE | 2017-12-19 08:24 | P.DS_ITS ---
General - General Admission date: 12/16/17 Discharge date: 12/19/17 HPI HPI: 87-year-old white female with known stroke disease with history of right-sided hemiparesis who has been a resident of local nursing facility over the past several months, who yesterday morning was noted by nursing aides there to have some increasing speech issues, dysarthria and word finding difficulties and right-sided weakness. Was sent to the emergency department. In the emergency department her symptoms had somewhat improved, CT scan was negative for bleeding , she was found to be hypertensive. [facility] stroke team was consulted, they felt that aggressive measures were not indicated in her situation and her family did not wish her to be transferred to [place]. She is admitted here to the hospital for further evaluation. Hospital Course Hospital Course: Patient was admitted, placed on neurologic monitoring. She had no further progression of her neurologic deficits, but unfortunately had really no improvement. She continued to have her right hemiparesis and right facial drooping throughout her hospital course, confirming the diagnosis of a completed ischemic stroke. CT scan was repeated 48 hours after admission, showing no bleeding, no significant change in her neurologic anatomy. She ate well, but was much weaker. Lovenox was started but she declined this because of the injection pain issues. Clopidogrel was started and she tolerated this well. This morning she is unchanged, she will be transferred back to her senior living. She will need aggressive skilled care for physical therapy/occupational/speech therapy. She will continue low-dose aspirin and clopidogrel, she will need CBC and BMP done in 4 days. She will maintain her DNR status. Objective Vital signs: Temp Pulse Resp BP Pulse Ox 98.6 F 99 H 20 141/68 97 12/19/17 07:52 12/19/17 07:52 12/19/17 07:52 12/19/17 07:52 12/19/17 07:52 Narrative: Patient is alert. Pleasant. Talkative. Right facial droop noted. Right arm hemiparesis noted. She has 2/5 strength, can squeeze my hand very lightly. Right leg has 3/5 strength. Is able to wiggle her toes. Can lift her leg very minimally against gravity. Strength is normal on the left side. Heart rate regular, lungs are clear, abdomen soft and nontender, no perfusion deficits. Results Labs on day of discharge: Labs from last 24 hours 12/19/17 12/18/17 12/18/17 06:11 20:12 16:14 POC Glucose 246 248 278 12/18/17 11:07 POC Glucose 361 DS: Diagnosis - Discharge Diagnosis (1) Ischemic stroke diagnosed during current admission Status: Acute (2) Hypertension, essential Status: Acute (3) TIA (transient ischemic attack) Status: Acute (4) UTI (urinary tract infection) Status: Acute Discharge Plan - Patient Discharge Instructions ACTIVITY: Continue current activity DIET: continue same diet - Follow up Plan Follow up with: Beth Coats APRN [Nurse Practitioner] - 12/27/17 Disposition: er SNF Home Medications: Home Medications Medication Instructions Recorded Confirmed Type acetaminophen 500 mg capsule 500 mg PO BID 12/01/17 12/17/17 History amlodipine 10 mg tablet 10 mg PO DAILY 12/01/17 12/17/17 History digoxin 125 mcg tablet 125 mcg PO Q48H 12/01/17 12/17/17 History
[2017-12-19 08:40] VITALS: PULSE 100
--- NOTE | 2017-12-19 09:52 | SW/DCPLANNER ---
PATIENT IS AN ESTABLISHED PATIENT WITH [facility]...SHE WILL RETURN BACK THERE AND WILL BE SKILLED UNDER HER MEDICARE A BENEFIT. SHE IS DISCHARGING BACK THERE TODAY....[facility] HAS BEEN NOTIFIED OF HER RETURN..
[2017-12-19 12:05] LABS: POC Glucose,Bedside 269 mg/dL (70-110)
== END 2017-12-19 13:30 | DRG 65 ==
LOC: ER 14:39 → 2ND 15:45
PROVIDERS: Admitting Provider Internal Medicine Adolescent Medicine; Emergency Provider Emergency Medicine; Family Provider Internal Medicine Adolescent Medicine; PCP Internal Medicine Adolescent Medicine; Visit Provider Internal Medicine Adolescent Medicine
DX: I63.9 Cerebral infarction, unspecified (principal); N39.0 Urinary tract infection, site not specified; I48.91 Unspecified atrial fibrillation; I69.351 Hemiplegia and hemiparesis following cerebral infarction affecting right dominant side; I63.8 Other cerebral infarction; I10 Essential (primary) hypertension; E11.9 Type 2 diabetes mellitus without complications; R29.810 Facial weakness; R47.1 Dysarthria and anarthria; R29.708 NIHSS score 8
CPT/HCPCS: 36415; 70450; 71045; 80048; 80053; 80162; 81001; 82550; 82553; 82962; 84436; 84443; 84479; 84484; 85025; 85610; 85730; 87086; 87088; 87186; 93005; 99211; 99284

== ENCOUNTER 2018-04-04 19:40 | Observation (INO) ==
[2018-04-04 20:19] LABS: Basophils # 0.1 K/mm3 (0-0.2); Basophils % 0.8 % (0.1-2.0); Eosinophils # 0.3 K/mm3 (0.0-0.4); Eosinophils % 3.5 % (0.1-12.0); Hematocrit 35.3 % (37.0-47.0); Hemoglobin 11.1 g/dL (12.2-16.2); Lymphocytes # 2.4 K/mm3 (0.7-4.5); Mean Corpuscular HGB Conc 31.3 g/dL (31.8-35.4); Mean Corpuscular Hemoglobin 29.6 pg (27.0-31.2); Mean Corpuscular Volume 94.5 fl (81-99); Monocytes # 0.4 K/mm3 (0.1-1.0); Monocytes % 5.2 % (1.7-9.3); Neutrophils # 4.1 K/mm3 (1.8-7.8); Neutrophils % 57.6 % (37.0-80.0); Platelet Count 276 K/mm3 (142-424); Red Blood Count 3.74 M/mm3 (4.20-5.40); Red Cell Distribution Width 13.8 % (11.5-17.5); White Blood Count 7.2 K/mm3 (4.8-10.8)
[2018-04-04 20:40] LABS: Albumin Level 3.7 gm/dL (3.4-5.0); Albumin/Globulin Ratio 0.8 (1.1-1.8); Anion Gap 15.9 mEq/L (5-15); Bilirubin,Total 0.3 mg/dL (0.2-1.0); Calcium 9.7 mg/dL (8.5-10.1); Digoxin 1.33 ng/mL (1.15-2.56); Globulin 4.8 gm/dl (1.3-3.2); Total Protein,Serum 8.5 gm/dL (6.4-8.2)
[2018-04-04 20:51] LABS: Potassium 6.9 mmoL/L (3.5-5.1)
--- NOTE | 2018-04-04 21:12 | Emergency Department Note ---
ED Disposition Clinical Impression: Hyperkalemia, Renal insufficiency Fall Qualifiers: Encounter type: initial encounter Qualified Code(s): W19.XXXA - Unspecified fall, initial encounter Disposition: Admitted as Observation Condition on Discharge: Good Referrals: Jason Conway MD [Primary Care Provider] - - Critical Care Critical Care Time: No Attestation: On 04/04/18, the high probability of a clinically significant, sudden or life threatening deterioration of the following system(s) required my full and direct attention, intervention and personal management. The time I documented below is in addition to time spent performing reported procedures but includes the following listed in this critical care notation. Medical Decision Making - Medical Records Medical records reviewed: Yes: I reviewed the patient's medical records. - [place] Inquiry Pt receiving controlled substance: No Vital Signs: 04/04/18 19:40 Temperature 99.0 F Temperature Source Oral Pulse Rate [Right Radial] 98 H Respiratory Rate 20 Blood Pressure [Right Arm] 149/80 Blood Pressure Mean [Right Arm] 103 02 Sat by Pulse Oximetry 96 - Lab Data Lab results reviewed: Yes: I reviewed the patient's lab results. Lab Results 04/04/18 20:05: WBC 7.2, RBC 3.74 L, Hgb 11.1 L, Hct 35.3 L, MCV 94.5, MCH 29.6 , MCHC 31.3 L, RDW 13.8, Plt Count 276, MPV 7.0 L, Neut % (Auto) 57.6, Lymph % ( Auto) 33.0, [place] % (Auto) 5.2, Eos % (Auto) 3.5, Baso % (Auto) 0.8, Neut # (Auto ) 4.1, Lymph # (Auto) 2.4, [place] # (Auto) 0.4, Eos # (Auto) 0.3, Baso # (Auto) 0.1 04/04/18 20:05: Sodium 137, Potassium 6.9 H*, Chloride 108 H, Carbon Dioxide 20 L, Anion Gap 15.9 H, BUN 53 H, Creatinine 1.69 H, Estimated Creat Clear 31, Estimated GFR 29 L, Est GFR ( Amer) 35 L, Glucose 154 H, Calcium 9.7, Total Bilirubin 0.3, AST 27, ALT 50, Alkaline Phosphatase 89, Total Protein 8.5 H, Albumin 3.7, Globulin 4.8 H, Albumin/Globulin Ratio 0.8 L, Digoxin 1.33 Result diagrams: 04/04/18 20:05 04/04/18 20:05 Orders (Tests/Meds): ORDERS Category Date Time Status CT cervical spine wo con Stat Cat Scan 04/04/18 19:[address] head/brain wo con Stat Cat Scan 04/04/18 19:49 Taken Chest XR AP view [XR chest AP] Stat Exams 04/04/18 19:49 Taken XR hip LT 2-3V w/pelvis Stat Exams 04/04/18 19:49 Taken - Radiology Data #1 Image(s): Chest, Pelvis Image Reviewed: Yes I reviewed the patient's radiology image Preliminary Findings: No Fracture Seen - CT Data CT Scan: Head, C-Spine Time Received: 21:[address] Reviewed: Yes: I have viewed the radiologist's interpretation Preliminary Findings: No Fracture Seen - ECG Data Tracing #1 I reviewed this ECG and interpreted as documented below: Normal Sinus Rhythm: Yes Ischemic changes: non-specific ST-T wave changes Fall HPI - General Chief Complaint: Fall Stated Complaint: fall Time Seen by Provider: 04/04/18 20:00 Mode of Arrival: EMS Source of Information: Patient, Relative, EMS ( ), Medical Record Limitations: Physical Limitations Description of Symptoms (Recalled from ER Triage Doc. by RN): pt became choked on some food and she bent over the bed to cough it up and fell out of bed injurying left hip. -loc. - History of Present Illness HPI Narrative: pt with fall at [facility] with lt hip pain - pt with prev cva with rt sided residual - no chest pain or loc MD complaint: fall Onset (ago): hour(s) Fall from: out of bed Fall witnessed: no Place fall occurred: [facility] Loss of consciousness: none Prolonged down time: no Symptoms prior to fall: other (cough/vomited ) Location of injury: head, neck Location of injury - extremities: Left: thigh Severity: moderate - Related Data Home Medications Medication Instructions Recorded Confirmed acetaminophen 500 mg capsule 500 mg PO BID 12/01/17 04/04/18 amlodipine 10 mg tablet 10 mg PO DAILY 12/01/17 04/04/18 digoxin 125 mcg tablet 125 mcg PO Q48H 12/01/17 04/04/18 gabapentin 100 mg capsule 100 mg PO QHS 12/01/17 04/04/18 insulin glargine (U-300) 300 16 unit SUB-Q HS 12/01/17 04/04/18 unit/mL (1.5 mL) subcutaneous pen lisinopril 20 mg tablet 20 mg PO DAILY 12/01/17 04/04/18 metformin 500 mg tablet 500 mg PO DAILY 12/01/17 04/04/18 omeprazole 20 mg capsule,delayed 20 mg PO DAILY 12/01/17 04/04/18 release ondansetron HCl 4 mg tablet 4 mg PO BIDP PRN 12/01/17 04/04/18 polyethylene glycol 3350 17 17 g PO DAILY 12/01/17 04/04/18 gram/dose oral powder sennosides 8.6 mg-docusate sodium 1 tab PO BID 12/01/17 04/04/18 50 mg tablet trazodone 50 mg tablet 50 mg PO QHS 12/01/17 04/04/18 Aspirin [Aspirin 81mg chewable 81 mg PO DAILY 12/17/17 04/04/18 tab] Insulin Lispro Protamin/Lispro 10 unit SQ DAILY 12/17/17 04/04/18 [Humalog Mix 75-25 Kwikpen] Clopidogrel Bisulfate [Plavix 75mg 75 mg PO DAILY 04/04/18 04/04/18 Tab] Allergies Allergy/AdvReac Type Severity Reaction Status Date / Time No Known Allergies Allergy Verified 04/04/18 19:49 [facility] History I have reviewed the patient's past medical history: Yes Medical History: Reports:: Atrial Fibrillation, Cerebrovascular Accident, Diabetes Mellitus Type 2, Hyperlipidemia, Hypertension, Transient Ischemic Attacks (TIA) Denies:: Cancer, Diabetes Mellitus Type 1, MRSA Other Medical History: Reports: Arthritis, Hypothyroidism Other Surgeries: Yes: Colonoscopy, EGD, Tubal Ligation Amputation: No Fractures: No Comment: Stroke with residual right-sided weakness - Social History Smoking Status: Former smoker Tobacco Type: cigarettes Alcohol Intake: never Substance Use Type: denies use Occupational Status: retired, disabled Housing: [facility] Household Members: other - Psychiatric History Expresses thoughts of harming self/others: None Suicide Plan Description: No Plan Family Hx:: Hypertension, Hyperlipidemia, Cancer, Diabetes ROS Obtained: Yes All systems reviewed & no additional complaints - Constitutional Constitutional: Denies fever(s) - Eyes Eyes: Denies change in vision - ENT Ears, Nose, Mouth, and Throat: Denies sore throat - Cardiovascular Cardiovascular: Denies chest pain - Respiratory Respiratory: No cough - Gastrointestinal Gastrointestingal: Denies: abdominal pain - Genitourinary Female Genitourinary: Denies hematuria - Musculoskeletal Musculoskeletal: Reports as per HPI, Denies joint pain, Denies joint swelling, Reports neck pain - Integumentary/Breasts Skin/Breast: Denies rash - Neurologic Neurologic: Denies headache(s), Denies seizure-like activity Physical Exam - General General appearance: alert, in no apparent distress - Head Head exam: normocephalic - Eye Eye exam: Present: PERRL, EOMI - ENT ENT exam: Present: mucous membranes dry - Neck Neck exam: Present: trachea midline - Chest Chest inspection: Present: normal inspection - Respiratory Respiratory exam: Present: normal lung sounds bilaterally. Absent: respiratory distress - Cardiovascular Cardiovascular exam: Present: regular rate, systolic murmur, +S4 - Abdominal Exam Abdominal exam: Present: soft - Extremities Exam Extremities exam: Absent: calf tenderness - Neurological Exam Neurological exam: Present: alert, CN II-XII intact, other (dec use rt upper and lower ext reported as old ) - Skin Skin exam: Absent: rash
[2018-04-05 04:56] LABS: Anion Gap 14.6 mEq/L (5-15); Potassium 5.6 mmoL/L (3.5-5.1)
[2018-04-05 05:09] LABS: Basophils # 0.1 K/mm3 (0-0.2); Basophils % 0.6 % (0.1-2.0); Eosinophils # 0.2 K/mm3 (0.0-0.4); Hematocrit 34.1 % (37.0-47.0); Hemoglobin 10.7 g/dL (12.2-16.2); Lymphocytes # 3.1 K/mm3 (0.7-4.5); Lymphocytes % 39.6 K/mm3 (10-50); Mean Corpuscular HGB Conc 31.4 g/dL (31.8-35.4); Mean Corpuscular Hemoglobin 29.5 pg (27.0-31.2); Mean Corpuscular Volume 93.9 fl (81-99); Mean Platelet Volume 7.3 fl (7.4-10.4); Monocytes # 0.4 K/mm3 (0.1-1.0); Monocytes % 4.7 % (1.7-9.3); Neutrophils # 4.1 K/mm3 (1.8-7.8); Neutrophils % 52.1 % (37.0-80.0); Platelet Count 294 K/mm3 (142-424); Red Blood Count 3.64 M/mm3 (4.20-5.40); Red Cell Distribution Width 13.7 % (11.5-17.5); White Blood Count 7.9 K/mm3 (4.8-10.8)
[2018-04-05 07:52] VITALS: BP 129/72
--- NOTE | 2018-04-05 08:04 | H&P/Discharge Summary ---
General - General Admission date:: 04/04/18 Discharge date: 04/05/18 *Admission Date: 04/04/18 *Chief complaint: Choking spell with fall *History of present illness: 77-year-old white female, long-term resident of local intermediate with significant hemiparesis from stroke disease who had an episode yesterday evening at the intermediate where she choked on a piece of food, bent over to cough and then fell down striking her head and neck on the floor apparently. Details of the event are not available to me at this point. The patient herself is unable to give a history of this episode. Brought to the emergency department where x-rays of spine and CT scan of head and neck were normal, but she was found to have hyperkalemia. She was admitted overnight for observation and treatment of her hyperkalemia. This morning she is pleasant, has no complaints. [facility] History I have reviewed the patient's past medical history: Yes Medical History: Reports:: Atrial Fibrillation, Cerebrovascular Accident, Diabetes Mellitus Type 2, Hyperlipidemia, Hypertension, Transient Ischemic Attacks (TIA) Denies:: Cancer, Diabetes Mellitus Type 1, MRSA Other Medical History: Reports: Arthritis, Hypothyroidism Other Surgeries: Yes: Cholecystectomy, Colonoscopy, EGD, Tubal Ligation Amputation: No Fractures: No - *Social History Educational Level: Completed High School Smoking Status: Former smoker Tobacco Type: cigarettes Alcohol Intake: never Substance Use Type: denies use Occupational Status: retired, disabled Housing: intermediate Household Members: other - Psychiatric History Expresses thoughts of harming self/others: None Suicide Plan Description: No Plan *Family Hx:: Hypertension, Hyperlipidemia, Cancer, Diabetes Review of Systems - Review of Systems Review of systems:: unable to obtain - *Neurologic Denies headache(s), Denies seizure-like activity Exam Vital signs and Labs for Last 24 Hours: Temp Pulse Resp BP Pulse Ox 99.3 F 105 H 18 129/72 96 04/05/18 07:49 04/05/18 07:49 04/05/18 07:49 04/05/18 07:49 04/05/18 07:49 Laboratory Results - last 24 hr 04/04/18 20:05: WBC 7.2, RBC 3.74 L, Hgb 11.1 L, Hct 35.3 L, MCV 94.5, MCH 29.6 , MCHC 31.3 L, RDW 13.8, Plt Count 276, MPV 7.0 L, Neut % (Auto) 57.6, Lymph % ( Auto) 33.0, [place] % (Auto) 5.2, Eos % (Auto) 3.5, Baso % (Auto) 0.8, Neut # (Auto ) 4.1, Lymph # (Auto) 2.4, [place] # (Auto) 0.4, Eos # (Auto) 0.3, Baso # (Auto) 0.1 04/04/18 20:05: Sodium 137, Potassium 6.9 H*, Chloride 108 H, Carbon Dioxide 20 L, Anion Gap 15.9 H, BUN 53 H, Creatinine 1.69 H, Estimated Creat Clear 31, Estimated GFR 29 L, Est GFR ( Amer) 35 L, Glucose 154 H, Calcium 9.7, Total Bilirubin 0.3, AST 27, ALT 50, Alkaline Phosphatase 89, Total Protein 8.5 H, Albumin 3.7, Globulin 4.8 H, Albumin/Globulin Ratio 0.8 L, Digoxin 1.33 04/04/18 22:10: Troponin I < 0.02 04/05/18 01:34: Troponin I < 0.02 04/05/18 04:40: Troponin I < 0.02 04/05/18 04:40: WBC 7.9, RBC 3.64 L, Hgb 10.7 L, Hct 34.1 L, MCV 93.9, MCH 29.5 , MCHC 31.4 L, RDW 13.7, Plt Count 294, MPV 7.3 L, Neut % (Auto) 52.1, Lymph % ( Auto) 39.6, [place] % (Auto) 4.7, Eos % (Auto) 3.0, Baso % (Auto) 0.6, Neut # (Auto ) 4.1, Lymph # (Auto) 3.1, [place] # (Auto) 0.4, Eos # (Auto) 0.2, Baso # (Auto) 0.1 04/05/18 04:40: Sodium 140, Potassium 5.6 H, Chloride 110 H, Carbon Dioxide 21, Anion Gap 14.6, BUN 46 H, Creatinine 1.38 H, Estimated Creat Clear 36, Estimated GFR 37 L, Est GFR ( Amer) 45 L D, Glucose 151 H, Calcium 10.0, Magnesium 1.4 04/05/18 06:06: POC Glucose 160 H I & O for Last 24 hours: Intake & Output 04/02/18 04/03/18 04/04/18 04/05/18 11:59 11:59 11:59 11:59 Weight 149 lb 1 oz Narrative: Dense hemiparesis as previously noted. Oropharynx is clear. Lungs are clear bilaterally. Heart rate regular. Abdomen is soft. She is able to move her left side fairly well. Previously noted hemiparesis and hyperreflexia on the right. No skin rash or trauma evident around her face or neck. Hospital Course Hospital Course: Patient was admitted overnight, hyperkalemia treatments were given. She was found to have normalized potassium this morning down to 5.6. She ate breakfast fairly well. Plan will be to transfer back to her intermediate. I will discontinue medications that could induce hyperkalemia, such as her digoxin and her MARY inhibitor. We will place her on low-dose blockade for rate control and blood pressure treatment respectively. I'd like her to have a BMP on April 07. Otherwise she will continue to maintain her DNR status. Results Labs on day of discharge: Labs from last 24 hours 04/05/18 04/05/18 04/05/18 06:06 04:40 04:40 WBC 7.9 RBC 3.64 L Hgb 10.7 L Hct 34.1 L MCV 93.9 MCH 29.5 MCHC 31.4 L RDW 13.7 Plt Count 294 MPV 7.3 L Neut % (Auto) 52.1 Lymph % (Auto) 39.6 [place] % (Auto) 4.7 Eos % (Auto) 3.0 Baso % (Auto) 0.6 Neut # (Auto) 4.1 Lymph # (Auto) 3.1 [place] # (Auto) 0.4 Eos # (Auto) 0.2 Baso # (Auto) 0.1 Sodium 140 Potassium 5.6 H Chloride 110 H Carbon Dioxide 21 Anion Gap 14.6 BUN 46 H Creatinine 1.38 H Estimated Creat Clear 36 Estimated GFR 37 L Est GFR ( Amer) 45 L D Glucose 151 H POC Glucose 160 H Calcium 10.0 Magnesium 1.4 Total Bilirubin AST ALT Alkaline Phosphatase Troponin I Total Protein Albumin Globulin Albumin/Globulin Ratio Digoxin 04/05/18 04/05/18 04/04/18 04:40 01:34 22:10 WBC RBC Hgb Hct MCV MCH MCHC RDW Plt Count MPV Neut % (Auto) Lymph % (Auto) [place] % (Auto) Eos % (Auto) Baso % (Auto) Neut # (Auto) Lymph # (Auto) [place] # (Auto) Eos # (Auto) Baso # (Auto) Sodium Potassium Chloride Carbon Dioxide Anion Gap BUN Creatinine Estimated Creat Clear Estimated GFR Est GFR ( Amer) Glucose POC Glucose Calcium Magnesium Total Bilirubin AST ALT Alkaline Phosphatase Troponin I < 0.02 < 0.02 < 0.02 Total Protein Albumin Globulin Albumin/Globulin Ratio Digoxin 04/04/18 04/04/18 20:05 20:05 WBC 7.2 RBC 3.74 L Hgb 11.1 L Hct 35.3 L MCV 94.5 MCH 29.6 MCHC 31.3 L RDW 13.8 Plt Count 276 MPV 7.0 L Neut % (Auto) 57.6 Lymph % (Auto) 33.0 [place] % (Auto) 5.2 Eos % (Auto) 3.5 Baso % (Auto) 0.8 Neut # (Auto) 4.1 Lymph # (Auto) 2.4 [place] # (Auto) 0.4 Eos # (Auto) 0.3 Baso # (Auto) 0.1 Sodium 137 Potassium 6.9 H* Chloride 108 H Carbon Dioxide 20 L Anion Gap 15.9 H BUN 53 H Creatinine 1.69 H Estimated Creat Clear 31 Estimated GFR 29 L Est GFR ( Amer) 35 L Glucose 154 H POC Glucose Calcium 9.7 Magnesium Total Bilirubin 0.3 AST 27 ALT 50 Alkaline Phosphatase 89 Troponin I Total Protein 8.5 H Albumin 3.7 Globulin 4.8 H Albumin/Globulin Ratio 0.8 L Digoxin 1.33 DS: Diagnosis - Discharge Diagnosis (1) Fall Status: Acute (2) Hyperkalemia Status: Acute (3) Renal insufficiency Status: Acute (4) Hypertension, essential Status: Acute Discharge Medications Discharge Medications: Home Medications Medication Instructions Recorded Confirmed Type acetaminophen 500 mg capsule 500 mg PO BID 12/01/17 04/05/18 History amlodipine 10 mg tablet 10 mg PO DAILY 12/01/17 04/05/18 History digoxin 125 mcg tablet 125 mcg PO Q48H 12/01/17 04/05/18 History gabapentin 100 mg capsule 100 mg PO BID 12/01/17 04/05/18 History insulin glargine (U-300) 300 16 unit SUB-Q HS 12/01/17 04/05/18 History unit/mL (1.5 mL) subcutaneous pen lisinopril 20 mg tablet 20 mg PO DAILY 12/01/17 04/05/18 History metformin 500 mg tablet 500 mg PO BID 12/01/17 04/05/18 History omeprazole 20 mg capsule,delayed 20 mg PO DAILY 12/01/17 04/05/18 History release ondansetron HCl 4 mg tablet 4 mg PO BIDP PRN 12/01/17 04/04/18 History polyethylene glycol 3350 17 17 g PO DAILY 12/01/17 04/05/18 History gram/dose oral powder sennosides 8.6 mg-docusate sodium 1 tab PO BIDP PRN 12/01/17 04/05/18 History 50 mg tablet trazodone 50 mg tablet 50 mg PO QHS 12/01/17 04/05/18 History Aspirin [Aspirin 81mg chewable 81 mg PO DAILY 12/17/17 04/05/18 History tab] Insulin Lispro Protamin/Lispro 10 unit SQ DAILY 12/17/17 04/05/18 History [Humalog Mix 75-25 Baronpen] Clopidogrel Bisulfate [Plavix 75mg 75 mg PO DAILY 04/04/18 04/05/18 History Tab] Disposition Disposition: Xfer SNF
== END 2018-04-05 13:00 ==
LOC: 2ND 19:40 → ER 19:40 → 2ND 22:00
PROVIDERS: ADMIT Emergency Medicine; ATTEND Internal Medicine Adolescent Medicine

== ENCOUNTER → 2018-05-27 16:58 | Outpatient (REF) | payer MEDICARE, OTHER, MEDICAID, SELFPAY ==
[2018-05-27 17:09] LABS: Microscopic, Urine URINE MICROSCOPIC (MICROSCOPIC)
[2018-05-27 17:38] LABS: Appearance,Urine SL CLOUDY (Clear); Bilirubin,Urine Negative (Negative); Blood, Urine Negative (Negative); Color,Urine YELLOW (Yellow); Glucose,Urine (UA) Negative (Negative); Ketones,Urine Negative (Negative); Leukocyte Esterase,Urine 1+ (Negative); Nitrate,Urine POSITIVE (Negative); PH,Urine 5.5 (5.0-8.5); Protein,Urine Negative (Negative); Specific Gravity, Urine 1.025 (1.005-1.030); Urobilinogen,Urine 0.2 EU/dl (0.2)
[2018-05-27 17:49] LABS: Bacteria,Urine 4+ /lpf; WBC,Urine 20-50 #/hpf (0-3)
== END ==
LOC: LAB 16:58
PROVIDERS: Visit Provider Internal Medicine Adolescent Medicine
DX: E78.5 Hyperlipidemia, unspecified (principal); N39.0 Urinary tract infection, site not specified; I10 Essential (primary) hypertension; E11.9 Type 2 diabetes mellitus without complications; F41.9 Anxiety disorder, unspecified; G47.00 Insomnia, unspecified
CPT/HCPCS: 81001; 87086; 87088; 87186

== ENCOUNTER → 2018-10-06 14:02 | Outpatient (CLI) | payer MEDICARE, OTHER, MEDICAID, SELFPAY ==
[2018-10-06 14:03] LABS: Microscopic, Urine URINE MICROSCOPIC (MICROSCOPIC)
[2018-10-06 14:37] LABS: Appearance,Urine SL CLOUDY (Clear); Bilirubin,Urine Negative (Negative); Blood, Urine TRACE-L (Negative); Color,Urine YELLOW (Yellow); Glucose,Urine (UA) Negative (Negative); Ketones,Urine Negative (Negative); Leukocyte Esterase,Urine TRACE (Negative); Nitrate,Urine Negative (Negative); Protein,Urine Negative (Negative); Urobilinogen,Urine 0.2 EU/dl (0.2)
[2018-10-06 14:57] LABS: Bacteria,Urine 3+ /lpf
== END ==
LOC: LAB 14:03 → LAB.DROPOF 14:27
PROVIDERS: Visit Provider Internal Medicine Adolescent Medicine
DX: M54.5 Low back pain (principal); R82.90 Unspecified abnormal findings in urine; R30.9 Painful micturition, unspecified; R41.0 Disorientation, unspecified
CPT/HCPCS: 81001; 87086; 87088; 87186

== ENCOUNTER → 2019-02-03 19:05 | Outpatient (CLI) | payer MEDICARE, OTHER, MEDICAID, SELFPAY ==
[2019-02-03 19:30] LABS: Microscopic, Urine URINE MICROSCOPIC (MICROSCOPIC)
[2019-02-03 20:05] LABS: Appearance,Urine SL CLOUDY (Clear); Bilirubin,Urine Negative (Negative); Blood, Urine 2+ (Negative); Color,Urine YELLOW (Yellow); Glucose,Urine (UA) Negative (Negative); Ketones,Urine Negative (Negative); Leukocyte Esterase,Urine Negative (Negative); Nitrate,Urine Negative (Negative); PH,Urine 5.5 (5.0-8.5); Protein,Urine 1+ (Negative); Specific Gravity, Urine 1.025 (1.005-1.030); Urobilinogen,Urine 0.2 EU/dl (0.2)
[2019-02-03 20:09] LABS: Bacteria,Urine 2+ /lpf; Mucus,Urine 2+ /lpf
== END ==
PROVIDERS: Visit Provider Internal Medicine Adolescent Medicine
DX: N39.0 Urinary tract infection, site not specified (principal)
CPT/HCPCS: 81001; 87086

== ENCOUNTER → 2019-03-05 16:46 | Outpatient (CLI) | payer MEDICARE, OTHER, MEDICAID, SELFPAY ==
[2019-03-05 17:07] LABS: Microscopic, Urine URINE MICROSCOPIC (MICROSCOPIC)
[2019-03-05 17:37] LABS: Appearance,Urine CLEAR (Clear); Bilirubin,Urine Negative (Negative); Blood, Urine TRACE-I (Negative); Color,Urine YELLOW (Yellow); Glucose,Urine (UA) Negative (Negative); Ketones,Urine Negative (Negative); Leukocyte Esterase,Urine 2+ (Negative); Nitrate,Urine POSITIVE (Negative); PH,Urine 5.5 (5.0-8.5); Protein,Urine TRACE (Negative); Specific Gravity, Urine 1.025 (1.005-1.030); Urobilinogen,Urine 0.2 EU/dl (0.2)
[2019-03-05 18:46] LABS: Bacteria,Urine 4+ /lpf
[2019-03-05 18:47] LABS: Squamous Epithelial Cell,Urine Occasional #/hpf (0-5); WBC,Urine 20-50 #/hpf (0-3)
== END ==
LOC: LAB 16:47 → LAB.DROPOF 17:18
PROVIDERS: Visit Provider Internal Medicine Adolescent Medicine
DX: N39.0 Urinary tract infection, site not specified (principal); B96.20 Unspecified Escherichia coli [E. coli] as the cause of diseases classified elsewhere
CPT/HCPCS: 81001; 87086; 87088; 87186

== ENCOUNTER → 2019-10-15 10:39 | Outpatient (CLI) | payer MEDICARE, OTHER, MEDICAID, SELFPAY ==
[2019-10-15 10:47] LABS: Basophils # 0.1 K/mm3 (0-0.2); Basophils % 0.6 % (0.1-2.0); Eosinophils # 0.2 K/mm3 (0.0-0.4); Eosinophils % 2.5 % (0.1-12.0); Hematocrit 29.9 % (37.0-47.0); Hemoglobin 9.2 g/dL (12.2-16.2); Lymphocytes % 33.9 % (10-50); Mean Corpuscular Hemoglobin 28.4 pg (27.0-31.2); Mean Corpuscular Volume 91.9 fl (81-99); Mean Platelet Volume 7.3 fl (7.4-10.4); Monocytes # 0.4 K/mm3 (0.1-1.0); Monocytes % 4.8 % (1.7-9.3); Neutrophils # 5.1 K/mm3 (1.8-7.8); Neutrophils % 58.2 % (37.0-80.0); Platelet Count 311 K/mm3 (142-424); Red Blood Count 3.25 M/mm3 (4.20-5.40); Red Cell Distribution Width 15.2 % (11.5-17.5); White Blood Count 8.7 K/mm3 (4.8-10.8)
[2019-10-15 10:50] LABS: Anion Gap 13.7 mEq/L (5-15); Blood Urea Nitrogen 30 mg/dL (7-18); Calcium 8.5 mg/dL (8.5-10.1); Carbon Dioxide 27 mmol/L (21.0-32.0); Chloride 102 mmol/L (98-107); Creatinine,Serum 1.54 mg/dL (0.55-1.02); Estimated Glomerular Filt Rate 32 ml/min (>60); GFR (African American) 39 ML/MIN (>60); Potassium 4.7 mmoL/L (3.5-5.1); Sodium 138 mmol/L (136-145)
[2019-10-15 11:01] LABS: Glucose 249 mg/dL (74-106)
== END ==
PROVIDERS: Visit Provider Internal Medicine Adolescent Medicine
DX: D64.9 Anemia, unspecified (principal); I69.30 Unspecified sequelae of cerebral infarction
CPT/HCPCS: 80048; 85025

== ENCOUNTER 2019-10-16 10:34 | Observation (INO) ==
--- NOTE | 2019-10-16 15:26 | Pharmacy Consult Notes ---
[facility] Pharmacy VTE Monitoring - Patient Demographics Admission date: 10/16/19 Report Date: 10/16/19 Time: 15:26 Allergies/Adverse Reactions: Patient Allergies No Known Allergies Allergy (Verified 04/04/18 19:49) - Prophylaxis VTE Prophylaxis Ordered?: Yes Types of VTE Prophylaxis: TEDS Knee High Location of Applied Device: Bilateral Lower Extremeties
[2019-10-16 15:49] LABS: Basophils # 0.1 K/mm3 (0-0.2); Basophils % 0.6 % (0.1-2.0); Eosinophils # 0.3 K/mm3 (0.0-0.4); Eosinophils % 2.3 % (0.1-12.0); Lymphocytes # 3.9 K/mm3 (0.7-4.5); Lymphocytes % 37.2 % (10-50); Mean Corpuscular HGB Conc 31.6 g/dL (31.8-35.4); Mean Corpuscular Volume 91.7 fl (81-99); Mean Platelet Volume 7.5 fl (7.4-10.4); Monocytes # 0.4 K/mm3 (0.1-1.0); Monocytes % 4.2 % (1.7-9.3); Neutrophils # 5.9 K/mm3 (1.8-7.8); Neutrophils % 55.7 % (37.0-80.0); Platelet Count 312 K/mm3 (142-424); Red Blood Count 2.43 M/mm3 (4.20-5.40); Red Cell Distribution Width 15.9 % (11.5-17.5); White Blood Count 10.6 K/mm3 (4.8-10.8)
[2019-10-16 15:53] LABS: Hematocrit 22.3 % (37.0-47.0); Hemoglobin 7.1 g/dL (12.2-16.2)
[2019-10-16 15:56] LABS: INR 1.01 (0.9-1.1); Prothrombin Time 10.5 seconds (9.4-11.8)
[2019-10-16 15:59] LABS: Anion Gap 17.5 mEq/L (5-15); Calcium 8.4 mg/dL (8.5-10.1)
--- NOTE | 2019-10-16 17:38 | History & Physical Report ---
*Admission Date: 10/16/19 <Beth Coats 10/16/19 17:43> *Chief complaint: Anemia, vaginal bleeding <Beth Coats 10/16/19 17:43> *History of present illness: Personally examined and interviewed the patient on afternoon of admission. Was pleasant and had a daughter at bedside. Agree with HPI, ROS, exam findings and care plan as documented. <Justin Pan - 10/17/19 22:25> 79 yr old female with PMH significant for CVA and insulin-dependent diabetes admitted secondary to acute onset anemia and new onset vaginal bleeding. I was contacted by [facility] yesterday morning to report new onset vaginal bleeding, bright red, with large clots per their report. Some complaints of lower abdominal discomfort from resident. CBC was obtained with Hgb 9.2 and aspirin and plavix were held, vitals were stable. Repeat H&H and TV US were arranged for today. Ultrasound was performed transabdominally because of positioning difficulty but revealed likely fibroid, thickened endometrium but no other masses identified. Her repeat H&H today was 7.2 and 22% so she admitted for observation, transfusion of PRBC and gynecologic consultation. <Beth Coats 10/16/19 17:43> [facility] History I have reviewed the patient's past medical history: Yes <Beth Coats 10/16/19 17:43> Medical History: Reports:: Atrial Fibrillation, Cerebrovascular Accident, Depression, Diabetes Mellitus Type 2, Gastroesophageal Reflux Disease(GERD), Hyperlipidemia, Hypertension, Renal Insufficiency, Transient Ischemic Attacks (TIA) Denies:: Cancer, Diabetes Mellitus Type 1, MRSA <Beth Coats 10/16/19 17:43> *Have you ever received a pneumonia vaccine?: No <Beth Coats 10/16/19 17:43> *Have you received a flu vaccine this season?: Yes <Beth Coats 10/16/19 17:43> Other Medical History: Reports: Arthritis, Hypothyroidism <Beth Coats 10/16/19 17:43> Other Surgeries: Yes: Cholecystectomy, Colonoscopy, EGD, Tubal Ligation <Beth Coats 10/16/19 17:43> Amputation: No <Beth Coats 10/16/19 17:43> Fractures: No <Beth Coats 10/16/19 17:43> - *Social History Smoking Status: Former smoker <Beth Coats 10/16/19 17:43> Tobacco Type: cigarettes <Beth Coats 10/16/19 17:43> Alcohol Intake: never <Beth Coats 10/16/19 17:43> Substance Use Type: denies use <PaulyLynnBeth L 10/16/19 17:43> *Occupational Status:: retired, disabled <Beth Coats 10/16/19 17:43> Housing: prison <Beth Coats 10/16/19 17:43> Household Members: other <Beth Coats 10/16/19 17:43> *Travel in the last 8 weeks: None <Beth Coats 10/16/19 17:43> Family Hx:: Hypertension, Hyperlipidemia, Cancer, Diabetes <Pauly,Beth L 10/16/19 17:43> Review of Systems - Review of Systems Review of systems:: pertinent systems reviewed and negative unless documented below <Beth Coats 10/16/19 17:43> - Constitutional Denies fever(s), Denies weight loss <PaulyLynnBeth L 10/16/19 17:43> - *Cardiovascular Denies chest pain, Denies leg swelling <PaluyLynnBeth L 10/16/19 17:43> - *Respiratory Denies cough, Denies shortness of breath with activity <PaulyLynnBeth L 10/16/19 17:43> - *Gastrointestinal Reports abdominal pain, Reports constipation, Denies change in bowel habits <PaulyLynnBeth L 10/16/19 17:43> - *Genitourinary Reports abnormal vaginal bleeding, Reports urinary incontinence <PaulyLynnBeth L 10/16/19 17:43> - *Musculoskeletal Denies joint pain <PaulyLynnBeth L 10/16/19 17:43> - Integumentary/Breasts Denies rash, Denies wounds <[facility] 10/16/19 17:43> - *Neurologic Reports abnormal speech (chronic since CVA), Reports other (right sided weakness since CVA) <Beth Coats L - 10/16/19 17:43> - Psychiatric Reports depression (improved on SSRI and trazodone) <Beth Coats - 10/16/19 17:43> Meds Home Medications Medication Instructions Recorded Confirmed Type amlodipine 10 mg tablet 10 mg PO DAILY 12/01/17 10/16/19 History gabapentin 100 mg capsule 200 mg PO BID 12/01/17 10/16/19 History omeprazole 20 mg capsule,delayed 20 mg PO DAILY 12/01/17 10/16/19 History release ondansetron HCl 4 mg tablet 4 mg PO BIDP PRN 12/01/17 10/16/19 History polyethylene glycol 3350 17 17 g PO DAILY 12/01/17 10/16/19 History gram/dose oral powder sennosides 8.6 mg-docusate sodium 1 tab PO BIDP PRN 12/01/17 10/16/19 History 50 mg tablet Aspirin [Aspirin 81mg chewable 81 mg PO DAILY 12/17/17 10/16/19 History tab] Clopidogrel Bisulfate [Plavix 75mg 75 mg PO DAILY 04/04/18 10/16/19 History Tab] Ammonium Lactate [Amlactin] 0 gm TP BIDP PRN 04/05/18 10/16/19 History Escitalopram Oxalate [Lexapro] 20 mg PO DAILY 04/05/18 10/16/19 History Hydrocod/Acet 5/325 mg [Hiram 1.5 tab PO Q8HP PRN 04/05/18 10/17/19 History 5/325mg tablet] Phenol [Chloraseptic] 1 spray MM TIDP PRN 04/05/18 10/16/19 History Polyvinyl Alcohol [Tears Again] 1 - 2 drops OP QIDP PRN 04/05/18 10/16/19 History Trazodone HCl 50 mg PO HS 04/05/18 10/16/19 History Acetaminophen [Pain & Fever] 500 mg PO BID 10/16/19 10/16/19 History Acetaminophen [Pain & Fever] 500 mg PO QIDP PRN 10/16/19 10/16/19 History Guaifen/Dextromethorphan/PE 10 ml PO QIDP PRN 10/16/19 10/16/19 History [Tussin Cf Cough-Cold Liquid] Insulin Aspart Prot/Insuln Asp 0 unit SQ BID 10/16/19 10/16/19 History [Novolog Mix 70/30 Flexpen 100 Units/mL 3mL] Insulin Aspart Prot/Insuln Asp 26 unit SQ PM 10/16/19 10/16/19 History [Novolog Mix 70/30 Flexpen 100 Units/mL 3mL] Insulin Aspart Prot/Insuln Asp 34 unit SQ DAILY 10/16/19 10/16/19 History [Novolog Mix 70/30 Flexpen 100 Units/mL 3mL] Lidocaine [Lidocaine 5% ointment 0 gm TP BIDP PRN 10/16/19 10/16/19 History 35gm tube] Loperamide HCl [Imodium 2 mg 2 mg PO Q6HP PRN 10/16/19 10/16/19 History capsule] Mag Hydrox/Aluminum Hyd/Simeth [Mi 20 ml PO Q4HP PRN 10/16/19 10/16/19 History Acid Suspension] Petrolatum,White [White Petrolatum] 0 gm TP BIDP PRN 10/16/19 10/16/19 History Rosuvastatin Calcium [Crestor 10mg 10 mg PO HS 10/16/19 10/16/19 History Tablets] Trolamine Salicylate [Aspercreme 0 gm TP TIDP PRN 10/16/19 10/16/19 History 10% 85gm tube] <Justin Pan - 10/17/19 22:25> Allergies Allergy/AdvReac Type Severity Reaction Status Date / Time No Known Allergies Allergy Verified 04/04/18 19:49 <Justin Pan - 10/17/19 22:25> Exam Vital signs and Labs for Last 24 Hours: Temp Pulse Resp BP Pulse Ox 99.1 F 106 H 17 140/62 93 L 10/17/19 20:00 10/17/19 20:00 10/17/19 20:00 10/17/19 20:00 10/17/19 20:00 Laboratory Results - last 24 hr 10/16/19 15:40: Crossmatch (AHG) See Detail 10/17/19 00:47: Stool Occult Blood Positive A 10/17/19 01:25: Hgb 9.2 L D, Hct 28.5 L 10/17/19 05:24: POC Glucose 214 H 10/17/19 06:20: WBC 9.0, RBC 3.22 L D, Hgb 9.2 L, Hct 28.8 L, MCV 89.5, MCH 28.7, MCHC 32.1, RDW 15.4, Plt Count 253, MPV 7.3 L, Neut % (Auto) 54.8, Lymph % (Auto) 37.9, [place] % (Auto) 4.4, Eos % (Auto) 2.3, Baso % (Auto) 0.6, Neut # (Auto) 5.0, Lymph # (Auto) 3.4, [place] # (Auto) 0.4, Eos # (Auto) 0.2, Baso # (Auto) 0.1 10/17/19 06:20: Sodium 141, Potassium 4.2, Chloride 106, Carbon Dioxide 26, Anion Gap 13.2, BUN 42 H, Creatinine 1.45 H, Estimated Creat Clear 41, Estimated GFR 35 L, Est GFR ( Amer) 42 L, Glucose 212 H D, Calcium 8.5 10/17/19 11:17: POC Glucose 242 H 10/17/19 17:02: POC Glucose 268 H 10/17/19 20:58: POC Glucose 316 H* <Justin Pan - 10/17/19 22:25> Temp Pulse Resp BP Pulse Ox 97.0 F L 109 H 18 153/74 H 96 10/16/19 15:37 10/16/19 15:37 10/16/19 15:37 10/16/19 15:37 10/16/19 15:37 Laboratory Results - last 24 hr 10/16/19 15:40: WBC 10.6, RBC 2.43 L D, Hgb 7.1 L*, Hct 22.3 L*, MCV 91.7, MCH 29.0, MCHC 31.6 L, RDW 15.9, Plt Count 312, MPV 7.5, Neut % (Auto) 55.7, Lymph % (Auto) 37.2, [place] % (Auto) 4.2, Eos % (Auto) 2.3, Baso % (Auto) 0.6, Neut # (Auto) 5.9, Lymph # (Auto) 3.9, [place] # (Auto) 0.4, Eos # (Auto) 0.3, Baso # (Auto) 0.1 10/16/19 15:40: PT 10.5, INR 1.01 10/16/19 15:40: Sodium 139, Potassium 4.5, Chloride 102, Carbon Dioxide 24, Anion Gap 17.5 H, BUN 41 H D, Creatinine 1.63 H, Estimated Creat Clear 36, Estimated GFR 30 L, Est GFR ( Amer) 37 L, Glucose 290 H, Calcium 8.4 L 10/16/19 15:40: Blood Type O Positive, Antibody Screen Negative, Crossmatch (AHG) See Detail <Beth Coats 10/16/19 17:43> I & O for Last 24 hours: Intake & Output 10/14/19 10/15/19 10/16/19 10/17/19 23:59 23:59 23:59 23:59 Intake Total 120 / 120 398.51 / 398.51 Balance 120 / 120 398.51 / 398.51 Weight 83.518 kg 84 kg <Justin Pan 10/17/19 22:25> Intake & Output 10/14/19 10/15/19 10/16/19 10/17/19 11:59 11:59 11:59 11:59 Weight 184 lb 2 oz <Beth Coats [facility] 10/16/19 17:43> - Constitutional no acute distress <Beth Coats 10/16/19 21:51> - *Routine HEENT Exam Head: Present: atraumatic (chronic facial asymmetry) <Beth Coats [facility] 10/16/19 21:51> Eye: Present: conjunctivae pink <Beth Coats 10/16/19 21:51> ENT: Present: mucous membranes moist <Beth Coats 10/16/19 21:51> - *Routine Neck Exam Present: supple. Absent: lymphadenopathy <Beth Coats 10/16/19 21:51> - *Routine Respiratory Exam Present: CTA bilaterally <Beth Coats 10/16/19 21:51> - *Routine Cardiovascular Exam Present: RRR <Beth Coats 10/16/19 21:51> - *Routine Abdominal Exam Present: soft, normoactive bowel sounds, tenderness (lower abdomen, midline). Absent: rebound, mass <Beth Coats 10/16/19 21:51> - *Routine Extremities Exam Present: pulses intact, normal capillary refill. Absent: clubbing, edema <Beth Coats 10/16/19 21:51> - *Routine Skin Exam Present: intact. Absent: rash <Beth Coats 10/16/19 21:51> - *Routine Neurological Exam Present: oriented X3, motor deficit (right hemiparesis), hearing grossly intact, facial asymmetry (chronic) <Beth Coats 10/16/19 21:51> Assessment and Plan (1) Acute blood loss anemia Current visit: Yes Status: Acute Category: Medical Code(s): D62 - Acute posthemorrhagic anemia (2) Post-menopausal bleeding Current visit: Yes Status: Acute Category: Medical Code(s): N95.0 - Postmenopausal bleeding (3) Endometrial thickening on ultrasound Current visit: Yes Status: Acute Category: Medical Code(s): R93.89 - Abnormal findings on diagnostic imaging of other specified body structures (4) History of CVA with residual deficit Current visit: Yes Status: Chronic Category: Medical Code(s): I69.30 - Unspecified sequelae of cerebral infarction (5) Insulin dependent diabetes mellitus Current visit: Yes Status: Chronic Category: Medical Code(s): E11.9 - Type 2 diabetes mellitus without complications; Z79.4 - termite control technician (current) use of insulin (6) Hypertension, essential Current visit: Yes Status: Chronic Category: Medical Code(s): I10 - Essential (primary) hypertension (7) Renal insufficiency Current visit: Yes Status: Chronic Category: Medical Code(s): N28.9 - Disorder of kidney and ureter, unspecified <Justin Pan 10/17/19 22:25> (1) Acute blood loss anemia Current visit: Yes Status: Acute Category: Medical Code(s): D62 - Acute posthemorrhagic anemia (2) Post-menopausal bleeding Current visit: Yes Status: Acute Category: Medical Code(s): N95.0 - Postmenopausal bleeding (3) Endometrial thickening on ultrasound Current visit: Yes Status: Acute Category: Medical Code(s): R93.89 - Abnormal findings on diagnostic imaging of other specified body structures (4) History of CVA with residual deficit Current visit: Yes Status: Chronic Category: Medical Code(s): I69.30 - Unspecified sequelae of cerebral infarction (5) Insulin dependent diabetes mellitus Current visit: Yes Status: Chronic Category: Medical Code(s): E11.9 - Type 2 diabetes mellitus without complications; Z79.4 - group home (current) use of insulin (6) Hypertension, essential Current visit: Yes Status: Chronic Category: Medical Code(s): I10 - Essential (primary) hypertension (7) Renal insufficiency Current visit: Yes Status: Chronic Category: Medical Code(s): N28.9 - Disorder of kidney and ureter, unspecified <Beth Coats - 10/16/19 21:43> - Assessment and plan all Dx Assessment and Plan for all problems:: Saw patient on afternoon of admission. Agree with exam findings and care plan as documented. Awaiting assessment by Car Sealer. Pt pleasant and awaiting blood transfusion. Pt condition guarded, prognosis fair. Discussed differential diagnosis of fibroids, cancer, or endometrial hyperplasia with family at bedside. Given co-morbidities, pt would be a high risk candidate for surgical intervention. further management pending Finance Professional recs. <Justin Pan - 10/17/19 22:25> Continue to hold anticoagulants. Continue other routine medications as noted for management of HTN and DM. TAHIR zuñiga for VTE prevention. 2 units PRBC and monitor response Consult Gynecology for recommendations regarding additional management of bleeding and abnormal ultrasound Discharge will likely be back to her long-term care facility once acute anemia stabilized <Beth Coats - 10/16/19 21:51>
[2019-10-17 01:43] LABS: Hematocrit 28.5 % (37.0-47.0)
[2019-10-17 01:48] LABS: Hemoglobin 9.2 g/dL (12.2-16.2)
[2019-10-17 06:49] LABS: Basophils # 0.1 K/mm3 (0-0.2); Basophils % 0.6 % (0.1-2.0); Eosinophils # 0.2 K/mm3 (0.0-0.4); Eosinophils % 2.3 % (0.1-12.0); Hematocrit 28.8 % (37.0-47.0); Hemoglobin 9.2 g/dL (12.2-16.2); Lymphocytes # 3.4 K/mm3 (0.7-4.5); Lymphocytes % 37.9 % (10-50); Mean Corpuscular HGB Conc 32.1 g/dL (31.8-35.4); Mean Corpuscular Volume 89.5 fl (81-99); Mean Platelet Volume 7.3 fl (7.4-10.4); Monocytes # 0.4 K/mm3 (0.1-1.0); Monocytes % 4.4 % (1.7-9.3); Neutrophils % 54.8 % (37.0-80.0); Platelet Count 253 K/mm3 (142-424); Red Blood Count 3.22 M/mm3 (4.20-5.40); Red Cell Distribution Width 15.4 % (11.5-17.5)
[2019-10-17 06:55] LABS: Anion Gap 13.2 mEq/L (5-15); Calcium 8.5 mg/dL (8.5-10.1)
--- NOTE | 2019-10-17 07:21 | Progress Note ---
Internal Medicine - PN: Subj *Date: 10/17/19 *Time: 07:20 Interval history: Patient did well overnight. Has responded appropriately to transfusion with hemoglobin above 9 g this morning. She has no complaints this morning. Sluggish and slow to respond to commands but at her baseline. Exam Vital signs and Labs for Last 24 Hours: Temp Pulse Resp BP Pulse Ox 98.7 F 110 H 17 149/83 H 94 L 10/17/19 04:00 10/17/19 04:00 10/17/19 04:00 10/17/19 04:00 10/17/19 04:00 Laboratory Results - last 24 hr 10/16/19 15:40: WBC 10.6, RBC 2.43 L D, Hgb 7.1 L*, Hct 22.3 L*, MCV 91.7, MCH 29.0, MCHC 31.6 L, RDW 15.9, Plt Count 312, MPV 7.5, Neut % (Auto) 55.7, Lymph % (Auto) 37.2, Major % (Auto) 4.2, Eos % (Auto) 2.3, Baso % (Auto) 0.6, Neut # (Auto) 5.9, Lymph # (Auto) 3.9, Major # (Auto) 0.4, Eos # (Auto) 0.3, Baso # (Auto) 0.1 10/16/19 15:40: PT 10.5, INR 1.01 10/16/19 15:40: Sodium 139, Potassium 4.5, Chloride 102, Carbon Dioxide 24, Anion Gap 17.5 H, BUN 41 H D, Creatinine 1.63 H, Estimated Creat Clear 36, Estimated GFR 30 L, Est GFR ( Amer) 37 L, Glucose 290 H, Calcium 8.4 L 10/16/19 15:40: Blood Type O Positive, Antibody Screen Negative, Crossmatch (AHG) See Detail 10/16/19 17:34: Blood Type Confirm O Positive 10/16/19 20:49: POC Glucose 295 H 10/17/19 00:47: Stool Occult Blood Positive A 10/17/19 01:25: Hgb 9.2 L D, Hct 28.5 L 10/17/19 05:24: POC Glucose 214 H 10/17/19 06:20: WBC 9.0, RBC 3.22 L D, Hgb 9.2 L, Hct 28.8 L, MCV 89.5, MCH 28.7, MCHC 32.1, RDW 15.4, Plt Count 253, MPV 7.3 L, Neut % (Auto) 54.8, Lymph % (Auto) 37.9, Major % (Auto) 4.4, Eos % (Auto) 2.3, Baso % (Auto) 0.6, Neut # (Auto) 5.0, Lymph # (Auto) 3.4, Major # (Auto) 0.4, Eos # (Auto) 0.2, Baso # (Auto) 0.1 10/17/19 06:20: Sodium 141, Potassium 4.2, Chloride 106, Carbon Dioxide 26, Anion Gap 13.2, BUN 42 H, Creatinine 1.45 H, Estimated Creat Clear 41, Estimated GFR 35 L, Est GFR ( Amer) 42 L, Glucose 212 H D, Calcium 8.5 I & O for Last 24 hours: Intake & Output 10/14/19 10/15/19 10/16/19 10/17/19 11:59 11:59 11:59 11:59 Intake Total 158.51 / 158.51 Balance 158.51 / 158.51 Weight 184 lb 2.011 oz Narrative: Right hemiparesis and facial droop noted. Old finding. Lungs have good air movement. Heart rate regular. Abdomen soft. Patient has a significant odor of vaginal discharge but no bleeding visible today. Assessment and Plan (1) Acute blood loss anemia Current visit: Yes Status: Acute Category: Medical Code(s): D62 - Acute posthemorrhagic anemia (2) Post-menopausal bleeding Current visit: Yes Status: Acute Category: Medical Code(s): N95.0 - Postmenopausal bleeding (3) Endometrial thickening on ultrasound Current visit: Yes Status: Acute Category: Medical Code(s): R93.89 - Abnormal findings on diagnostic imaging of other specified body structures (4) History of CVA with residual deficit Current visit: Yes Status: Chronic Category: Medical Code(s): I69.30 - Unspecified sequelae of cerebral infarction (5) Insulin dependent diabetes mellitus Current visit: Yes Status: Chronic Category: Medical Code(s): E11.9 - Type 2 diabetes mellitus without complications; Z79.4 - buttermaker (current) use of insulin (6) Hypertension, essential Current visit: Yes Status: Chronic Category: Medical Code(s): I10 - Essential (primary) hypertension (7) Renal insufficiency Current visit: Yes Status: Chronic Category: Medical Code(s): N28.9 - Disorder of kidney and ureter, unspecified - Assessment and plan all Dx Assessment and Plan for all problems:: Anemia stabilized status post transfusion. No evidence of active bleeding. Repeat blood counts tomorrow. [employer]LE[employer] consult pending.
--- NOTE | 2019-10-17 08:57 | Consult Report ---
DIETARY WORKER - CN: HPI - Data of Consult Patient: known to practice within the last 3 years Requesting Physician: Justin Pan MD Primary Care Provider: Jason Conway MD - Consult Narrative Reason for consult: vaginal bleeding History of present illness: Ms. Franklin is a 79 year old female Who was admitted with heavy vaginal bleeding and anemia. She lives at [facility] [place] after having had a stroke. She is also known to have a vulvar lesion that I was going to remove prior to her having had a stroke. She had an ultrasound that shows a slightly thickened endometrium and a possible fibroid. CC: Justin Pan MD Review of Systems - Review of Systems Review of systems:: pertinent systems reviewed and negative unless documented below - *Neurologic Reports abnormal speech (chronic since CVA), Reports other (right sided weakness since CVA) [facility] History I have reviewed the patient's past medical history: Yes Medical History: Reports:: Atrial Fibrillation, Cerebrovascular Accident, Depression, Diabetes Mellitus Type 2, Gastroesophageal Reflux Disease(GERD), Hyperlipidemia, Hypertension, Renal Insufficiency, Transient Ischemic Attacks (TIA) Denies:: Cancer, Diabetes Mellitus Type 1, MRSA *Have you ever received a pneumonia vaccine?: Yes *Have you received a flu vaccine this season?: Yes Other Medical History: Reports: Arthritis, Hypothyroidism Other Surgeries: Yes: Cholecystectomy, Colonoscopy, EGD, Tubal Ligation Amputation: No Fractures: No - *Social History Educational Level: Attended College Smoking Status: Never smoker Tobacco Type: cigarettes Alcohol Intake: never Substance Use Type: denies use *Occupational Status:: retired, disabled Housing: [facility] Household Members: other *Travel in the last 8 weeks: None - Psychiatric History Pschychiatric History:: Reports:: Depression Family Hx:: Hypertension, Hyperlipidemia, Cancer, Diabetes Meds Home Medications Medication Instructions Recorded Confirmed Type amlodipine 10 mg tablet 10 mg PO DAILY 12/01/17 10/16/19 History gabapentin 100 mg capsule 200 mg PO BID 12/01/17 10/16/19 History omeprazole 20 mg capsule,delayed 20 mg PO DAILY 12/01/17 10/16/19 History release ondansetron HCl 4 mg tablet 4 mg PO BIDP PRN 12/01/17 10/16/19 History polyethylene glycol 3350 17 17 g PO DAILY 12/01/17 10/16/19 History gram/dose oral powder sennosides 8.6 mg-docusate sodium 1 tab PO BIDP PRN 12/01/17 10/16/19 History 50 mg tablet Aspirin [Aspirin 81mg chewable 81 mg PO DAILY 12/17/17 10/16/19 History tab] Clopidogrel Bisulfate [Plavix 75mg 75 mg PO DAILY 04/04/18 10/16/19 History Tab] Ammonium Lactate [Amlactin] 0 gm TP BIDP PRN 04/05/18 10/16/19 History Escitalopram Oxalate [Lexapro] 20 mg PO DAILY 04/05/18 10/16/19 History Hydrocod/Acet 5/325 mg [[place] 1.2 tab PO Q8HP PRN 04/05/18 10/16/19 History 5/325mg tablet] Phenol [Chloraseptic] 1 spray MM TIDP PRN 04/05/18 10/16/19 History Polyvinyl Alcohol [Tears Again] 1 - 2 drops OP QIDP PRN 04/05/18 10/16/19 History Trazodone HCl 50 mg PO HS 04/05/18 10/16/19 History Acetaminophen [Pain & Fever] 500 mg PO BID 10/16/19 10/16/19 History Acetaminophen [Pain & Fever] 500 mg PO QIDP PRN 10/16/19 10/16/19 History Guaifen/Dextromethorphan/PE 10 ml PO QIDP PRN 10/16/19 10/16/19 History [Tussin Cf Cough-Cold Liquid] Insulin Aspart Prot/Insuln Asp 0 unit SQ BID 10/16/19 10/16/19 History [Novolog Mix 70/30 Flexpen 100 Units/mL 3mL] Insulin Aspart Prot/Insuln Asp 26 unit SQ PM 10/16/19 10/16/19 History [Novolog Mix 70/30 Flexpen 100 Units/mL 3mL] Insulin Aspart Prot/Insuln Asp 34 unit SQ DAILY 10/16/19 10/16/19 History [Novolog Mix 70/30 Flexpen 100 Units/mL 3mL] Lidocaine [Lidocaine 5% ointment 0 gm TP BIDP PRN 10/16/19 10/16/19 History 35gm tube] Loperamide HCl [Imodium 2 mg 2 mg PO Q6HP PRN 10/16/19 10/16/19 History capsule] Mag Hydrox/Aluminum Hyd/Simeth [Mi 20 ml PO Q4HP PRN 10/16/19 10/16/19 History Acid Suspension] Petrolatum,White [White Petrolatum] 0 gm TP BIDP PRN 10/16/19 10/16/19 History Rosuvastatin Calcium [Crestor 10mg 10 mg PO HS 10/16/19 10/16/19 History Tablets] Trolamine Salicylate [Aspercreme 0 gm TP TIDP PRN 10/16/19 10/16/19 History 10% 85gm tube] Allergies Allergy/AdvReac Type Severity Reaction Status Date / Time No Known Allergies Allergy Verified 04/04/18 19:49 DIETARY WORKER - Exam Vital signs: Temp Pulse Resp BP Pulse Ox 99.2 F 106 H 16 150/82 H 93 L 10/17/19 07:43 10/17/19 07:43 10/17/19 07:43 10/17/19 07:43 10/17/19 07:43 - Constitutional no acute distress - Routine HEENT Exam Head: Present: normocephalic Eye: Present: EOMI, PERRL ENT: Present: mucous membranes moist - Routine Neck Exam Present: supple, full ROM - Routine Respiratory Exam Absent: accessory muscle use (good air entry bilaterally), wheezes, crackles - Routine Cardiovascular Exam Present: RRR. Absent: murmur - Routine Abdominal Exam Present: soft. Absent: tenderness, distended, rebound, guarding - Routine Rectal Exam Patient deferred: visual exam, digital exam - Routine Exam Patient deferred: external exam, groin exam, perineal exam - Routine Extremities Exam Present: full ROM. Absent: cyanosis, edema - Routine Skin Exam Present: intact, dry. Absent: cyanosis - Routine Neurological Exam Present: alert, oriented X3 - Routine Psychiatric Exam Present: normal affect DIETARY WORKER - Results - Labs CBC & Chem 7: 10/17/19 06:20 10/17/19 06:20 Labs: Short CBC 10/16/19 10/17/19 10/17/19 Range/Units 15:40 01:25 06:20 WBC 10.6 9.0 (4.8-10.8) K/mm3 Hgb 7.1 L* 9.2 L D 9.2 L (12.2-16.2) g/dL Hct 22.3 L* 28.5 L 28.8 L (37.0-47.0) % Plt Count 312 253 (142-424) K/mm3 BMP 10/16/19 10/17/19 15:40 06:20 Sodium 139 141 Potassium 4.5 4.2 Chloride 102 106 Carbon Dioxide 24 26 BUN 41 H D 42 H Creatinine 1.63 H 1.45 H Glucose 290 H 212 H D Calcium 8.4 L 8.5 Assessment and Plan (1) Acute blood loss anemia Current visit: Yes Status: Acute Category: Medical Code(s): D62 - Acute posthemorrhagic anemia (2) Post-menopausal bleeding Current visit: Yes Status: Acute Category: Medical Code(s): N95.0 - Postmenopausal bleeding (3) Endometrial thickening on ultrasound Current visit: Yes Status: Acute Category: Medical Code(s): R93.89 - Abnormal findings on diagnostic imaging of other specified body structures (4) History of CVA with residual deficit Current visit: Yes Status: Chronic Category: Medical Code(s): I69.30 - Unspecified sequelae of cerebral infarction (5) Insulin dependent diabetes mellitus Current visit: Yes Status: Chronic Category: Medical Code(s): E11.9 - Type 2 diabetes mellitus without complications; Z79.4 - buttermaker continuous churn (current) use of insulin (6) Hypertension, essential Current visit: Yes Status: Chronic Category: Medical Code(s): I10 - Essential (primary) hypertension (7) Renal insufficiency Current visit: Yes Status: Chronic Category: Medical Code(s): N28.9 - Disorder of kidney and ureter, unspecified - Assessment and plan all Dx Assessment and Plan for all problems:: She has abnormal uterine bleeding and we would like to rule out endometrial carcinoma. She may also have a polyp within the endometrium that may be causing this bleeding. We will make arrangements for her to have a hysteroscopy, dilation and curettage as well as possible polypectomy. She also has a lesion on her vulva and we will remove this as well. We will take her to the operating room for this. I do not think she is a candidate for endometrial biopsy in my office. I discussed the risks of surgery that includes bleeding, infection, injuries to the bowel and bladder. We discussed the rare risk of perforation. All questions were answered and consents were signed. I discussed this with her daughter.
--- NOTE | 2019-10-17 22:36 | Discharge Summary ---
General - General Admission date:: 10/16/19 Discharge date: 10/18/19 HPI HPI: Personally examined and interviewed the patient on afternoon of admission. Was pleasant and had a daughter at bedside. Agree with HPI, ROS, exam findings and care plan as documented. Objective Vital signs: Temp Pulse Resp BP Pulse Ox 99.1 F 106 H 17 140/62 93 L 10/17/19 20:00 10/17/19 20:00 10/17/19 20:00 10/17/19 20:00 10/17/19 20:00 Narrative: Alert and oriented to person and place, pleasant and cooperative RRR, no murmur LCTAB, no wheeze or rhonchi Right hemiparesis and facial droop noted (POA Old finding) Abdomen soft Patient has a significant odor of vaginal discharge but no bleeding visible today. Results Labs on day of discharge: Labs from last 24 hours 10/17/19 10/17/19 10/17/19 20:58 17:02 11:17 WBC RBC Hgb Hct MCV MCH MCHC RDW Plt Count MPV Neut % (Auto) Lymph % (Auto) [place] % (Auto) Eos % (Auto) Baso % (Auto) Neut # (Auto) Lymph # (Auto) [place] # (Auto) Eos # (Auto) Baso # (Auto) Sodium Potassium Chloride Carbon Dioxide Anion Gap BUN Creatinine Estimated Creat Clear Estimated GFR Est GFR ( Amer) Glucose POC Glucose 316 H* 268 H 242 H Calcium Stool Occult Blood Crossmatch (AHG) 10/17/19 10/17/19 10/17/19 06:20 06:20 05:24 WBC 9.0 RBC 3.22 L D Hgb 9.2 L Hct 28.8 L MCV 89.5 MCH 28.7 MCHC 32.1 RDW 15.4 Plt Count 253 MPV 7.3 L Neut % (Auto) 54.8 Lymph % (Auto) 37.9 [place] % (Auto) 4.4 Eos % (Auto) 2.3 Baso % (Auto) 0.6 Neut # (Auto) 5.0 Lymph # (Auto) 3.4 [place] # (Auto) 0.4 Eos # (Auto) 0.2 Baso # (Auto) 0.1 Sodium 141 Potassium 4.2 Chloride 106 Carbon Dioxide 26 Anion Gap 13.2 BUN 42 H Creatinine 1.45 H Estimated Creat Clear 41 Estimated GFR 35 L Est GFR ( Amer) 42 L Glucose 212 H D POC Glucose 214 H Calcium 8.5 Stool Occult Blood Crossmatch (AHG) 10/17/19 10/17/19 10/16/19 01:25 00:47 15:40 WBC RBC Hgb 9.2 L D Hct 28.5 L MCV MCH MCHC RDW Plt Count MPV Neut % (Auto) Lymph % (Auto) [place] % (Auto) Eos % (Auto) Baso % (Auto) Neut # (Auto) Lymph # (Auto) [place] # (Auto) Eos # (Auto) Baso # (Auto) Sodium Potassium Chloride Carbon Dioxide Anion Gap BUN Creatinine Estimated Creat Clear Estimated GFR Est GFR ( Amer) Glucose POC Glucose Calcium Stool Occult Blood Positive A Crossmatch ([facility]) See Detail DS: Diagnosis - Discharge Diagnosis (1) Acute blood loss anemia Status: Acute (2) Post-menopausal bleeding Status: Acute (3) Endometrial thickening on ultrasound Status: Acute (4) History of CVA with residual deficit Status: Chronic (5) Insulin dependent diabetes mellitus Status: Chronic (6) Hypertension, essential Status: Chronic (7) Renal insufficiency Status: Chronic Discharge Plan - Patient Discharge Instructions ACTIVITY: Limited activity DIET: continue same diet Patient Instructions: Anemia, DI for a Dilation and Curettage - Follow up Plan Disposition: [facility] [place] Home Medications: Home Medications Medication Instructions Recorded Confirmed Type amlodipine 10 mg tablet 10 mg PO DAILY 12/01/17 10/16/19 History gabapentin 100 mg capsule 200 mg PO BID 12/01/17 10/16/19 History omeprazole 20 mg capsule,delayed 20 mg PO DAILY 12/01/17 10/16/19 History release ondansetron HCl 4 mg tablet 4 mg PO BIDP PRN 12/01/17 10/16/19 History polyethylene glycol 3350 17 17 g PO DAILY 12/01/17 10/16/19 History gram/dose oral powder sennosides 8.6 mg-docusate sodium 1 tab PO BIDP PRN 12/01/17 10/16/19 History 50 mg tablet Aspirin [Aspirin 81mg chewable 81 mg PO DAILY 12/17/17 10/16/19 History tab] Clopidogrel Bisulfate [Plavix 75mg 75 mg PO DAILY 04/04/18 10/16/19 History Tab] Ammonium Lactate [Amlactin] 0 gm TP BIDP PRN 04/05/18 10/16/19 History Escitalopram Oxalate [Lexapro] 20 mg PO DAILY 04/05/18 10/16/19 History Hydrocod/Acet 5/325 mg [[place] 1.5 tab PO Q8HP PRN 04/05/18 10/17/19 History 5/325mg tablet] Phenol [Chloraseptic] 1 spray MM TIDP PRN 04/05/18 10/16/19 History Polyvinyl Alcohol [Tears Again] 1 - 2 drops OP QIDP PRN 04/05/18 10/16/19 History Trazodone HCl 50 mg PO HS 04/05/18 10/16/19 History Acetaminophen [Pain & Fever] 500 mg PO BID 10/16/19 10/16/19 History Acetaminophen [Pain & Fever] 500 mg PO QIDP PRN 10/16/19 10/16/19 History Guaifen/Dextromethorphan/PE 10 ml PO QIDP PRN 10/16/19 10/16/19 History [Tussin Cf Cough-Cold Liquid] Insulin Aspart Prot/Insuln Asp 0 unit SQ BID 10/16/19 10/16/19 History [Novolog Mix 70/30 Flexpen 100 Units/mL 3mL] Insulin Aspart Prot/Insuln Asp 26 unit SQ PM 10/16/19 10/16/19 History [Novolog Mix 70/30 Flexpen 100 Units/mL 3mL] Insulin Aspart Prot/Insuln Asp 34 unit SQ DAILY 10/16/19 10/16/19 History [Novolog Mix 70/30 Flexpen 100 Units/mL 3mL] Lidocaine [Lidocaine 5% ointment 0 gm TP BIDP PRN 10/16/19 10/16/19 History 35gm tube] Loperamide HCl [Imodium 2 mg 2 mg PO Q6HP PRN 10/16/19 10/16/19 History capsule] Mag Hydrox/Aluminum Hyd/Simeth [Mi 20 ml PO Q4HP PRN 10/16/19 10/16/19 History Acid Suspension] Petrolatum,White [White Petrolatum] 0 gm TP BIDP PRN 10/16/19 10/16/19 History Rosuvastatin Calcium [Crestor 10mg 10 mg PO HS 10/16/19 10/16/19 History Tablets] Trolamine Salicylate [Aspercreme 0 gm TP TIDP PRN 10/16/19 10/16/19 History 10% 85gm tube] Prescriptions/Medication Reconciliation: Continued amlodipine 10 mg tablet 10 mg PO DAILY gabapentin 100 mg capsule 200 mg PO BID polyethylene glycol 3350 17 gram/dose oral powder 17 g PO DAILY omeprazole 20 mg capsule,delayed release 20 mg PO DAILY sennosides 8.6 mg-docusate sodium 50 mg tablet 1 tab PO BIDP PRN PRN Reason: STOOL SOFTENER ondansetron HCl 4 mg tablet 4 mg PO BIDP PRN PRN Reason: Nausea Clopidogrel Bisulfate [Plavix 75mg Tab] 75 mg PO DAILY Escitalopram Oxalate [Lexapro] 20 mg PO DAILY Polyvinyl Alcohol [Tears Again] 1 - 2 drops OP QIDP PRN PRN Reason: DRY EYES Trazodone HCl 50 mg PO HS Insulin Aspart Prot/Insuln Asp [Novolog Mix 70/30 Flexpen 100 Units/mL 3mL] 34 unit SQ DAILY Trolamine Salicylate [Aspercreme 10% 85gm tube] 0 gm TP TIDP PRN PRN Reason: pain Lidocaine [Lidocaine 5% ointment 35gm tube] 0 gm TP BIDP PRN PRN Reason: pain Loperamide HCl [Imodium 2 mg capsule] 2 mg PO Q6HP PRN PRN Reason: Diarrhea Rosuvastatin Calcium [Crestor 10mg Tablets] 10 mg PO HS Acetaminophen [Pain & Fever] 500 mg PO BID Aspirin [Aspirin 81mg chewable tab] 81 mg PO DAILY Hydrocod/Acet 5/325 mg [[place] 5/325mg tablet] 1.5 tab PO Q8HP PRN PRN Reason: pain Ammonium Lactate [Amlactin] 0 gm TP BIDP PRN PRN Reason: DRY/ITCHING Phenol [Chloraseptic] 1 spray MM TIDP PRN PRN Reason: Sore Throat Insulin Aspart Prot/Insuln Asp [Novolog Mix 70/30 Flexpen 100 Units/mL 3mL] 26 unit SQ PM Petrolatum,White [White Petrolatum] 0 gm TP BIDP PRN PRN Reason: Skin Irritation Acetaminophen [Pain & Fever] 500 mg PO QIDP PRN PRN Reason: fever/pain Guaifen/Dextromethorphan/PE [Tussin Cf Cough-Cold Liquid] 10 ml PO QIDP PRN PRN Reason: cough/cold Mag Hydrox/Aluminum Hyd/Simeth [Mi Acid Suspension] 20 ml PO Q4HP PRN PRN Reason: heartburn/indigestion Insulin Aspart Prot/Insuln Asp [Novolog Mix 70/30 Flexpen 100 Units/mL 3mL] 0 unit SQ BID - Problem Reconciliation Problems Reviewed?: Yes
[2019-10-18 07:04] LABS: Anion Gap 13.1 mEq/L (5-15); Calcium 8.7 mg/dL (8.5-10.1)
[2019-10-18 07:26] LABS: Basophils % 0.4 % (0.1-2.0); Eosinophils # 0.2 K/mm3 (0.0-0.4); Eosinophils % 2.3 % (0.1-12.0); Hematocrit 25.8 % (37.0-47.0); Hemoglobin 8.1 g/dL (12.2-16.2); Lymphocytes # 2.7 K/mm3 (0.7-4.5); Mean Corpuscular HGB Conc 31.6 g/dL (31.8-35.4); Mean Corpuscular Volume 91.3 fl (81-99); Monocytes # 0.4 K/mm3 (0.1-1.0); Monocytes % 4.4 % (1.7-9.3); Neutrophils # 5.2 K/mm3 (1.8-7.8); Neutrophils % 60.9 % (37.0-80.0); Platelet Count 278 K/mm3 (142-424); Red Blood Count 2.82 M/mm3 (4.20-5.40); Red Cell Distribution Width 15.7 % (11.5-17.5); White Blood Count 8.5 K/mm3 (4.8-10.8)
--- NOTE | 2019-10-18 08:10 | Progress Note ---
[facility] Anesthesia Checklist - Patient Identification Patient Identification: Arm Band - Structural Data Admitted From: Inpatient Planned Operative Procedure/s: Hysteroscopy, D&C myosure ablation, resection of vulvar lesion Consent for Planned Operative Procedure(s) Verified: Yes Verified Documents: Surgical Consent, History and Physical - NPO Status Verified Time NPO: 00:00 - Additional verifications Anesthesia Reactions: No - Airway Assessment C-Spine Mobility Assessed: Yes (mp1) TMJ Mobility Assessed: Yes Dentition: Good Dentition - Neurological Assessment Level of Consciousness: Awake, Alert - Anesthesia Plan Anesthesia Risk discussed: Yes Anesthesia Plan: Verified ASA Class: III Anesthesia Type: General [facility] History I have reviewed the patient's past medical history: Yes Medical History: Reports:: Atrial Fibrillation, Cerebrovascular Accident, Depression, Diabetes Mellitus Type 2, Gastroesophageal Reflux Disease(GERD), Hyperlipidemia, Hypertension, Renal Insufficiency, Transient Ischemic Attacks (TIA) Denies:: Cancer, Diabetes Mellitus Type 1, MRSA *Have you ever received a pneumonia vaccine?: Yes *Have you received a flu vaccine this season?: Yes Other Medical History: Reports: Arthritis, Hypothyroidism Anesthesia experience/problems:: nac Other Surgeries: Yes: Cholecystectomy, Colonoscopy, EGD, Tubal Ligation Amputation: No Fractures: No - *Social History Educational Level: Attended College Smoking Status: Never smoker Tobacco Type: cigarettes Alcohol Intake: never Substance Use Type: denies use *Occupational Status:: retired, disabled Housing: [facility] Household Members: other *Travel in the last 8 weeks: None - Psychiatric History Pschychiatric History:: Reports:: Depression Family Hx:: Hypertension, Hyperlipidemia, Cancer, Diabetes
--- NOTE | 2019-10-18 09:24 | Operative Note ---
Date of procedure: 10/18/19 Pre-op Diagnosis:: Postmenopausal bleeding Post-op Diagnosis:: Postmenopausal bleeding, anemia, likely GI bleed Procedure performed:: Hysteroscopy D&C Surgeon:: Marcio Vazquez MD SYSTEMS ACCOUNTANT:: Finn Hargrove Anesthesia: LMA Estimated blood loss (mL): 25 Clinical Note:: She is an 79-year-old lady who has had a previous history of stroke and lives in a long term. She had copious blood on her diaper and was brought in the hospital. Her hemoglobin had dropped to 7. She received a couple of units of blood. Subsequently her bleeding has completely settled. After having discussed the risks and benefits with her family we elected perform a hysteroscopy, D&C with possible polypectomy for her suspected postmenopausal bleeding Operative findings:: She had a perfectly pristine atrophic endometrium. There was no evidence of any vaginal bleeding. There were no polyps. Operative note:: She was taken to the operating room where LMA anesthesia was found to be adequate. She was prepped and draped in normal sterile fashion in the lithotomy position. A weighted speculum was placed in vagina and the anterior lip of the cervix was grasped with a tenaculum. I dilated the cervix to approximately 6 mm. I then inserted a hysteroscope into the uterine cavity. We used the MyoSure scope. The findings were as previously dictated. I then performed a gentle curettage. She had what appeared to be black stool and I did a rectal examination and sent another sample of this for occult blood. She is incontinent of stool and urine and she had a nickel size lesion on her left buttock. We had biopsied this before and it showed LATHA 2 and LATHA 1. It was not ulcerated. Given the fact that it sits in her diaper area and she is incontinent of stool I did not want to remove this and then have her get infected. As result of that we have just left this alone for now. Since she has what appears to be melena stool we will go ahead and get a consult with general surgery and have her do an upper scope today. We sent off stool sample for occult blood as well. She tolerated the procedure well and was taken to recovery room in excellent condition. All sponge and instrument counts were correct. The estimated blood loss was less than 25 cc. Condition: stable Disposition: PACU Specimens:: Endometrial curettings. Complications:: none
--- NOTE | 2019-10-18 09:26 | Progress Note ---
[facility] Anesthesia Record Part I Intake, IV Amount: 300 Estimated blood loss (mL): 25 Urine output (mL): 0 Blood Pressure: 162/83 SaO2: 95 Pulse Rate: 110 Respiratory Rate: 16 Temperature: 97.5 F Patient is:: Drowsy, Stable Stable to PACU at:: 09:20
--- NOTE | 2019-10-18 11:11 | Procedure Note ---
- Procedure: Date: 10/18/19 Procedure Performed:: Esophagogastroduodenoscopy with biopsy Indications:: Anemia Melena Performing Provider:: Tai Duff MD Referring Provider:: Dr. Pan; Dr. Vazquez Sedation:: Monitored anesthesia care Procedure:: After informed consent was obtained the patient was taken to the endoscopy suite. Sedation ensued after the patient was transferred to the left lateral decubitus position. Pulse, blood pressure, and oxygen saturation were monitored throughout the procedure. The endoscope was advanced beyond the duodenal bulb. Retroflexion within the gastric lumen was accomplished. The gastroscope was carefully removed and the patient was transferred to recovery in stable condition. Please see "findings" and "specimens" below for detail. Findings:: Gastroesophageal junction at 41 cm Tiny sliding hiatal hernia High arcing cardia with mild inflammatory changes (no definitive paraesophageal herniation) Mild patchy gastritis No sign of active or recent hemorrhage No ulceration Specimens:: Antral biopsy Recommendations:: Follow-up pathology Ongoing evaluation with guard to anemia and possible gastrointestinal hemorrhage will be discussed with patient, patient's family, and primary service. Complications:: No immediate Estimated blood obtained (mL): 1
[2019-10-18 18:19] LABS: Basophils % 0.3 % (0.1-2.0); Eosinophils % 0.3 % (0.1-12.0); Hematocrit 24.5 % (37.0-47.0); Lymphocytes # 1.5 K/mm3 (0.7-4.5); Lymphocytes % 19.1 % (10-50); Mean Corpuscular HGB Conc 32.9 g/dL (31.8-35.4); Mean Corpuscular Volume 92.8 fl (81-99); Mean Platelet Volume 8.7 fl (7.4-10.4); Monocytes # 0.1 K/mm3 (0.1-1.0); Monocytes % 1.2 % (1.7-9.3); Neutrophils # 6.3 K/mm3 (1.8-7.8); Neutrophils % 79.2 % (37.0-80.0); Platelet Count 271 K/mm3 (142-424); Red Blood Count 2.64 M/mm3 (4.20-5.40); Red Cell Distribution Width 15.7 % (11.5-17.5); White Blood Count 7.9 K/mm3 (4.8-10.8)
--- NOTE | 2019-10-18 18:55 | Progress Note ---
Internal Medicine - PN: Subj *Date: 10/18/19 *Time: 13:30 Interval history: Overall is done well with stable hemoglobin. Taken to the OR this morning for gynecologic exam. No bleeding noted on exam. Gynecology recommended consulting surgery who performed an EGD today. Patient's family at bedside and updated of plan. Will monitor H&H at this time. Remains hemodynamically stable. Denies shortness of breath, chest pain, nausea, vomiting. No bright red blood per rectum. Good p.o. intake. Afebrile Exam Vital signs and Labs for Last 24 Hours: Temp Pulse Resp BP Pulse Ox 99.0 F 108 H 20 118/63 92 L 10/18/19 15:25 10/18/19 15:25 10/18/19 15:25 10/18/19 15:25 10/18/19 15:25 Laboratory Results - last 24 hr 10/16/19 15:40: Crossmatch (AHG) See Detail 10/17/19 20:58: POC Glucose 316 H* 10/18/19 05:57: POC Glucose 266 H 10/18/19 06:40: WBC 8.5, RBC 2.82 L, Hgb 8.1 L, Hct 25.8 L, MCV 91.3, MCH 28.8, MCHC 31.6 L, RDW 15.7, Plt Count 278, MPV 8.0, Neut % (Auto) 60.9, Lymph % (Auto) 32.0, [place] % (Auto) 4.4, Eos % (Auto) 2.3, Baso % (Auto) 0.4, Neut # (Auto) 5.2, Lymph # (Auto) 2.7, [place] # (Auto) 0.4, Eos # (Auto) 0.2, Baso # (Auto) 0.0 10/18/19 06:40: Sodium 141, Potassium 4.1, Chloride 105, Carbon Dioxide 27, Anion Gap 13.1, BUN 38 H, Creatinine 1.39 H, Estimated Creat Clear 42, Estimated GFR 36 L, Est GFR ( Amer) 44 L, Glucose 248 H, Calcium 8.7 10/18/19 09:19: Stool Occult Blood Positive A 10/18/19 11:13: POC Glucose 262 H 10/18/19 11:49: POC Glucose 293 H 10/18/19 16:10: POC Glucose 287 H I & O for Last 24 hours: Intake & Output 10/15/19 10/16/19 10/17/19 10/18/19 23:59 23:59 23:59 23:59 Intake Total 120 / 120 398.51 / 398.51 780 / 780 Balance 120 / 120 398.51 / 398.51 780 / 780 Weight 83.518 kg 84 kg 82.667 kg Narrative: - Constitutional no acute distress, in bed on exam - *Routine HEENT Exam Head: Present: atraumatic (chronic facial asymmetry) Eye: Present: conjunctivae pink ENT: Present: mucous membranes moist - *Routine Respiratory Exam Present: CTA bilaterally - *Routine Cardiovascular Exam Present: RRR, no murmur - *Routine Abdominal Exam Present: soft, normoactive bowel sounds, tenderness (lower abdomen, midline). Absent: rebound, mass - *Routine Extremities Exam Present: pulses intact, normal capillary refill. Absent: clubbing, edema - *Routine Skin Exam Present: intact. Absent: rash - *Routine Neurological Exam Present: oriented X3, motor deficit (right hemiparesis), hearing grossly intact, facial asymmetry (chronic) Assessment and Plan (1) Acute blood loss anemia Current visit: Yes Status: Acute Category: Medical Code(s): D62 - Acute posthemorrhagic anemia (2) Endometrial thickening on ultrasound Current visit: Yes Status: Acute Category: Medical Code(s): R93.89 - Abnormal findings on diagnostic imaging of other specified body structures (3) History of CVA with residual deficit Current visit: Yes Status: Chronic Category: Medical Code(s): I69.30 - Unspecified sequelae of cerebral infarction (4) Insulin dependent diabetes mellitus Current visit: Yes Status: Chronic Category: Medical Code(s): E11.9 - Type 2 diabetes mellitus without complications; Z79.4 - alf (current) use of insulin (5) Hypertension, essential Current visit: Yes Status: Chronic Category: Medical Code(s): I10 - Essential (primary) hypertension (6) Renal insufficiency Current visit: Yes Status: Chronic Category: Medical Code(s): N28.9 - Disorder of kidney and ureter, unspecified (7) GI bleed Current visit: Yes Status: Acute Qualifiers: GI bleed type/associated pathology: melena Qualified Code(s): K92.1 - Melena Category: Medical Code(s): K92.2 - Gastrointestinal hemorrhage, unspecified OB exam today with no source of bleeding from the gynecologic region. Melenic stool during exam. Surgery was consulted. Upper GI negative for gastritis or ulcers. Discussed colonoscopy with surgery, given patient's overall condition and advanced age, would not be a good surgical candidate even in the setting of finding an abnormality. High potential for AVMs as well. We will plan to monitor H&H. If continues to be stable, will defer on further scopes however if continues to drop, will proceed with colonoscopy. Plan to hold aspirin and Plavix at time of discharge. - Assessment and plan all Dx Assessment and Plan for all problems:: 79-year-old female with acute on chronic anemia due to concern for vaginal bleed versus GI bleed. GI bleed identified on gynecologic exam today. Hemoglobin stable this evening. Plan to repeat H&H in the morning. Deferring on colonoscopy and holding medications that complicate bleeding risk. Discussed pros and cons of stroke prophylaxis with aspirin and Plavix in the setting of GI bleed and acute on chronic anemia. If stable in the morning, discharge back to [facility] for continued care. Condition overall guarded, prognosis poor. Remains DNR.
--- NOTE | 2019-10-19 06:59 | Progress Note ---
[facility] Anesthesia Record Part II Discharge Time: 10:35 Destination: Endoscopy (Pt to have EGD after leaving PACU) PACU nurse assessment reviewed?: Yes Patient Condition:: Good Anesthesia Complications:: None Swallowing reflex intact?: Yes Cyanosis?: No Blood Pressure: 145/76 Pulse Rate: 100 Temperature: 98.0 F Mental Status: Alert & Oriented Pain level:: 0 Nausea and/or vomitting:: None Intake, IV Amount: 0
[2019-10-19 07:08] LABS: Basophils % 0.3 % (0.1-2.0); Eosinophils % 0.1 % (0.1-12.0); Lymphocytes # 2.2 K/mm3 (0.7-4.5); Lymphocytes % 30.5 % (10-50); Mean Corpuscular HGB Conc 31.1 g/dL (31.8-35.4); Mean Platelet Volume 7.9 fl (7.4-10.4); Monocytes # 0.3 K/mm3 (0.1-1.0); Monocytes % 3.9 % (1.7-9.3); Neutrophils # 4.6 K/mm3 (1.8-7.8); Neutrophils % 65.1 % (37.0-80.0); Platelet Count 269 K/mm3 (142-424); Red Blood Count 2.41 M/mm3 (4.20-5.40); Red Cell Distribution Width 16.1 % (11.5-17.5); White Blood Count 7.1 K/mm3 (4.8-10.8)
[2019-10-19 07:16] LABS: Anion Gap 11.4 mEq/L (5-15); Calcium 8.6 mg/dL (8.5-10.1)
[2019-10-19 07:22] LABS: Hematocrit 22.4 % (37.0-47.0)
[2019-10-19 15:30] LABS: Hemoglobin 8.6 g/dL (12.2-16.2)
--- NOTE | 2019-10-19 16:38 | Progress Note ---
Internal Medicine - PN: Subj *Date: 10/19/19 *Time: 08:45 Interval history: Patient did well overnight. Had a drop in her hemoglobin again this morning from 8-7. Had 2 dark stools yesterday. Denies any belly pain, nausea, vomiting, diarrhea. Tolerating good p.o. intake. Hemodynamically stable. Oxygen weaned down to 1 L with sats greater than 95. Family was uncomfortable with oxygen being turned off overnight even though we have not had any documented hypoxemia. Patient pleasant this morning with family at bedside. Discussed risks and benefits of anticoagulation and prevention of stroke. Has- bled and chads VASC scoring both with approximately a 10% risk of events in the next year of either a stroke or bleed. Expressed concern for patient's ability to handle aggressive work-up including colonoscopy. Family expressed desire to not intervene on anything surgically even if found. Decision was made not to pursue colonoscopy today. Mended they discuss as a family the risks of anticoagulation versus not and give us their input for decision making moving forward. Exam Vital signs and Labs for Last 24 Hours: Temp Pulse Resp BP Pulse Ox 98.6 F 97 H 16 137/48 L 95 10/19/19 15:00 10/19/19 15:00 10/19/19 15:00 10/19/19 15:00 10/19/19 15:00 Laboratory Results - last 24 hr 10/16/19 15:40: Blood Type O Positive, Antibody Screen Negative, Crossmatch (AHG) See Detail 10/18/19 16:10: POC Glucose 287 H 10/18/19 18:05: WBC 7.9, RBC 2.64 L, Hgb 8.0 L, Hct 24.5 L, MCV 92.8, MCH 30.5, MCHC 32.9, RDW 15.7, Plt Count 271, MPV 8.7, Neut % (Auto) 79.2, Lymph % (Auto) 19.1, [place] % (Auto) 1.2 L, Eos % (Auto) 0.3, Baso % (Auto) 0.3, Neut # (Auto) 6.3, Lymph # (Auto) 1.5, [place] # (Auto) 0.1, Eos # (Auto) 0.0, Baso # (Auto) 0.0 10/18/19 21:14: POC Glucose 298 H 10/19/19 05:44: POC Glucose 287 H 10/19/19 06:35: WBC 7.1, RBC 2.41 L, Hgb 7.0 L*, Hct 22.4 L*, MCV 93.0, MCH 28.9, MCHC 31.1 L, RDW 16.1, Plt Count 269, MPV 7.9, Neut % (Auto) 65.1, Lymph % (Auto) 30.5, [place] % (Auto) 3.9, Eos % (Auto) 0.1, Baso % (Auto) 0.3, Neut # (Auto) 4.6, Lymph # (Auto) 2.2, [place] # (Auto) 0.3, Eos # (Auto) 0.0, Baso # (Auto) 0.0 10/19/19 06:35: Sodium 141, Potassium 4.4, Chloride 106, Carbon Dioxide 28, Anion Gap 11.4, BUN 37 H, Creatinine 1.40 H, Estimated Creat Clear 42, Estimated GFR 36 L, Est GFR ( Amer) 44 L, Glucose 262 H, Calcium 8.6 10/19/19 11:51: POC Glucose 231 H 10/19/19 15:13: Hgb 8.6 L D, Hct 27.0 L I & O for Last 24 hours: Intake & Output 10/16/19 10/17/19 10/18/19 10/19/19 23:59 23:59 23:59 23:59 Intake Total 120 / 120 398.51 / 398.51 780 / 780 859 / 859 Balance 120 / 120 398.51 / 398.51 780 / 780 859 / 859 Weight 83.518 kg 84 kg 82.667 kg 82.696 kg Narrative: - Constitutional no acute distress, in bed on exam, eating breakfast - *Routine HEENT Exam Head: Present: atraumatic (chronic facial asymmetry) Eye: Present: conjunctivae pink ENT: Present: mucous membranes moist - *Routine Respiratory Exam Present: CTA bilaterally - *Routine Cardiovascular Exam Present: RRR, no murmur - *Routine Abdominal Exam Present: soft, normoactive bowel sounds, tenderness (lower abdomen, midline). Absent: rebound, mass - *Routine Extremities Exam Present: pulses intact, normal capillary refill. Absent: clubbing, edema - *Routine Skin Exam Present: intact. Absent: rash - *Routine Neurological Exam Present: oriented X3, motor deficit (right hemiparesis), hearing grossly intact, facial asymmetry (chronic) Assessment and Plan (1) Acute blood loss anemia Current visit: Yes Status: Acute Category: Medical Code(s): D62 - Acute posthemorrhagic anemia (2) Endometrial thickening on ultrasound Current visit: Yes Status: Acute Category: Medical Code(s): R93.89 - Abnormal findings on diagnostic imaging of other specified body structures (3) History of CVA with residual deficit Current visit: Yes Status: Chronic Category: Medical Code(s): I69.30 - Unspecified sequelae of cerebral infarction (4) Insulin dependent diabetes mellitus Current visit: Yes Status: Chronic Category: Medical Code(s): E11.9 - Type 2 diabetes mellitus without complications; Z79.4 - FDC (current) use of insulin (5) Hypertension, essential Current visit: Yes Status: Chronic Category: Medical Code(s): I10 - Essential (primary) hypertension (6) Renal insufficiency Current visit: Yes Status: Chronic Category: Medical Code(s): N28.9 - Disorder of kidney and ureter, unspecified (7) GI bleed Current visit: Yes Status: Acute Qualifiers: GI bleed type/associated pathology: melena Qualified Code(s): K92.1 - Melena Category: Medical Code(s): K92.2 - Gastrointestinal hemorrhage, unspecified - Assessment and plan all Dx Assessment and Plan for all problems:: 79-year-old female with multiple comorbidities and acute on chronic anemia suspected secondary to GI bleed. Will pursue abdominal CT to assess for any large abnormalities or diverticuli in the setting of not pursuing colonoscopy. Will transfuse again today with a goal of hemoglobin greater than 9. Monitor overnight for further bleeds with repeat hemoglobin in the morning. If continues to remain stable, will discharge back to her custodial in the morning. At this time we will plan to hold anticoagulation however family chooses to restart, we will plan to resume when hemoglobin stable in 2-4 weeks. Discussed pros and cons of starting anticoagulation and risk of repeat bleeding versus repeat CVA. CODE STATUS remains DNR. Condition remains guarded. Prognosis poor.
[2019-10-20 08:03] LABS: Basophils # 0.1 K/mm3 (0-0.2); Basophils % 0.6 % (0.1-2.0); Eosinophils # 0.1 K/mm3 (0.0-0.4); Eosinophils % 1.7 % (0.1-12.0); Hemoglobin 9.2 g/dL (12.2-16.2); Lymphocytes # 3.1 K/mm3 (0.7-4.5); Lymphocytes % 36.8 % (10-50); Mean Corpuscular HGB Conc 31.8 g/dL (31.8-35.4); Mean Corpuscular Volume 91.2 fl (81-99); Mean Platelet Volume 7.8 fl (7.4-10.4); Monocytes # 0.4 K/mm3 (0.1-1.0); Monocytes % 4.3 % (1.7-9.3); Neutrophils # 4.8 K/mm3 (1.8-7.8); Neutrophils % 56.6 % (37.0-80.0); Platelet Count 277 K/mm3 (142-424); Red Blood Count 3.18 M/mm3 (4.20-5.40); Red Cell Distribution Width 15.3 % (11.5-17.5); White Blood Count 8.4 K/mm3 (4.8-10.8)
[2019-10-20 08:12] LABS: Hematocrit 29.1 % (37.0-47.0)
[2019-10-20 08:13] LABS: Anion Gap 10.9 mEq/L (5-15); Calcium 8.3 mg/dL (8.5-10.1)
--- NOTE | 2019-10-20 08:36 | Progress Note ---
Subjective Patient reports: feels better Exam Vital signs and Labs for Last 24 Hours: Temp Pulse Resp BP Pulse Ox 98.6 F 94 H 18 127/71 92 L 10/20/19 08:00 10/20/19 08:00 10/20/19 08:00 10/20/19 08:00 10/20/19 08:00 Laboratory Results - last 24 hr 10/16/19 15:40: Blood Type O Positive, Antibody Screen Negative, Crossmatch (AHG) See Detail 10/19/19 11:51: POC Glucose 231 H 10/19/19 15:13: Hgb 8.6 L D, Hct 27.0 L 10/19/19 21:15: POC Glucose 297 H 10/20/19 05:55: POC Glucose 309 H* 10/20/19 07:44: WBC 8.4, RBC 3.18 L D, Hgb 9.2 L, Hct 29.1 L, MCV 91.2, MCH 29.0, MCHC 31.8, RDW 15.3, Plt Count 277, MPV 7.8, Neut % (Auto) 56.6, Lymph % (Auto) 36.8, [place] % (Auto) 4.3, Eos % (Auto) 1.7, Baso % (Auto) 0.6, Neut # (Auto) 4.8, Lymph # (Auto) 3.1, [place] # (Auto) 0.4, Eos # (Auto) 0.1, Baso # (Auto) 0.1 10/20/19 07:44: Sodium 141, Potassium 3.9, Chloride 105, Carbon Dioxide 29, Anion Gap 10.9, BUN 30 H, Creatinine 1.44 H, Estimated Creat Clear 42, Estimated GFR 35 L, Est GFR ( Amer) 42 L, Glucose 245 H, Calcium 8.3 L I & O for Last 24 hours: Intake & Output 10/17/19 10/18/19 10/19/19 10/20/19 11:59 11:59 11:59 11:59 Intake Total 278.51 / 278.51 540 / 540 989 / 989 470 / 470 Balance 278.51 / 278.51 540 / 540 989 / 989 470 / 470 Weight 184 lb 2.011 oz 182 lb 4 oz 182 lb 5 oz 186 lb 5 oz - Constitutional no acute distress - *Routine Respiratory Exam Absent: respiratory distress - *Routine Cardiovascular Exam Present: RRR Progress Note: A&P (1) Acute blood loss anemia Status: Acute Assessment and plan: Likely gastrointestinal source. Precise etiology undefined as no causative factor noted on EGD. Currently, she is seemingly stable with no definitive ongoing hemorrhage. Further diagnostic interventions may be associated with risk that outweighs the benefit. Ongoing management as per primary service. Current Visit: Yes (2) Endometrial thickening on ultrasound Status: Acute Current Visit: Yes (3) History of CVA with residual deficit Status: Chronic Current Visit: Yes (4) Insulin dependent diabetes mellitus Status: Chronic Current Visit: Yes (5) Hypertension, essential Status: Chronic Current Visit: Yes (6) Renal insufficiency Status: Chronic Current Visit: Yes (7) GI bleed Status: Acute Current Visit: Yes
--- NOTE | 2019-10-20 09:12 | Discharge Summary ---
General - General Admission date:: 10/16/19 Discharge date: 10/20/19 HPI HPI: Patient was admitted from group home with significant bleeding and low hemoglobin. Initially suspicion was for vaginal bleeding given location of bleeding and nursing reports. Patient with significant comorbidities as listed in admission documentation. Hospital Course Hospital Course: Patient was admitted, required transfusion to correct significant anemia. Evidence of vaginal bleeding was noted on nursing exam and was also found to have evidence of GI bleeding with guaiac positive stools. Gynecologic consultation was obtained and appreciated. Please see notes. Taken to the OR and under local anesthesia was subjected to significant pelvic examination which revealed no evidence of active bleeding, WORK ORDER CLERK lesions, etc. Surgery was consulted, performed EGD which revealed some minimal gastritis but without evidence of active bleeding. Patient was given more blood, hemoglobin stabilized. Anticoagulation efforts were held. Family was consulted regarding her current multiple comorbidities and risks of ongoing anticoagulation. Discussed risks and benefits of anticoagulation and prevention of stroke. Has- bled and chads VASC scoring both with approximately a 10% risk of events in the next year of either a stroke or bleed. Expressed concern for patient's ability to handle aggressive work-up including colonoscopy. Family expressed desire to not intervene on anything surgically even if found. Decision was made not to pursue colonoscopy today. Mended they discuss as a family the risks of anticoagulation versus not and give us their input for decision making moving forward. Overnight patient did well, hemoglobin is actually improved. Plan will be to transfer patient back to [facility]. Obviously hold anticoagulation at this point. Family will be reconsulted in the next week or so after they have had time to discuss the above information. Would recommend BMP and CBC on October 22. Please note patient maintains a DNR status. Objective Vital signs: Temp Pulse Resp BP Pulse Ox 98.6 F 94 H 18 127/71 92 L 10/20/19 08:00 10/20/19 08:00 10/20/19 08:00 10/20/19 08:00 10/20/19 08:00 Narrative: Patient is awake, pleasant. Much more alert than previous exams. Does not have any pallor. No scleral icterus or jaundice. Heart rate irregular, abdomen soft, patient is eating breakfast fairly well. Previously noted neurologic deficit with right-sided facial drooping. No skin breakdown. Oropharynx moist and clear. No JVD. Results Labs on day of discharge: Labs from last 24 hours 10/20/19 10/20/19 10/20/19 07:44 07:44 05:55 WBC 8.4 RBC 3.18 L D Hgb 9.2 L Hct 29.1 L MCV 91.2 MCH 29.0 MCHC 31.8 RDW 15.3 Plt Count 277 MPV 7.8 Neut % (Auto) 56.6 Lymph % (Auto) 36.8 [place] % (Auto) 4.3 Eos % (Auto) 1.7 Baso % (Auto) 0.6 Neut # (Auto) 4.8 Lymph # (Auto) 3.1 [place] # (Auto) 0.4 Eos # (Auto) 0.1 Baso # (Auto) 0.1 Sodium 141 Potassium 3.9 Chloride 105 Carbon Dioxide 29 Anion Gap 10.9 BUN 30 H Creatinine 1.44 H Estimated Creat Clear 42 Estimated GFR 35 L Est GFR ( Amer) 42 L Glucose 245 H POC Glucose 309 H* Calcium 8.3 L Blood Type Antibody Screen Crossmatch ([facility]) 10/19/19 10/19/19 10/19/19 21:15 15:13 11:51 WBC RBC Hgb 8.6 L D Hct 27.0 L MCV MCH MCHC RDW Plt Count MPV Neut % (Auto) Lymph % (Auto) [place] % (Auto) Eos % (Auto) Baso % (Auto) Neut # (Auto) Lymph # (Auto) [place] # (Auto) Eos # (Auto) Baso # (Auto) Sodium Potassium Chloride Carbon Dioxide Anion Gap BUN Creatinine Estimated Creat Clear Estimated GFR Est GFR ( Amer) Glucose POC Glucose 297 H 231 H Calcium Blood Type Antibody Screen Crossmatch ([facility]) 10/16/19 15:40 WBC RBC Hgb Hct MCV MCH MCHC RDW Plt Count MPV Neut % (Auto) Lymph % (Auto) [place] % (Auto) Eos % (Auto) Baso % (Auto) Neut # (Auto) Lymph # (Auto) [place] # (Auto) Eos # (Auto) Baso # (Auto) Sodium Potassium Chloride Carbon Dioxide Anion Gap BUN Creatinine Estimated Creat Clear Estimated GFR Est GFR ( Amer) Glucose POC Glucose Calcium Blood Type O Positive Antibody Screen Negative Crossmatch ([facility]) See Detail DS: Diagnosis - Discharge Diagnosis (1) Acute blood loss anemia Status: Resolved (2) Endometrial thickening on ultrasound Status: Ruled-out (3) History of CVA with residual deficit Status: Chronic (4) Insulin dependent diabetes mellitus Status: Chronic (5) Hypertension, essential Status: Chronic (6) Renal insufficiency Status: Chronic (7) GI bleed Status: Resolved Discharge Plan - Patient Discharge Instructions ACTIVITY: Continue current activity DIET: continue same diet Patient Instructions: Anemia, Upper GI Endoscopy, DI for a Dilation and Curettage - Follow up Plan Follow up with: Beth Coats APRN [Nurse Practitioner] - 10/23/19 Disposition: [facility] Home Medications: Home Medications Medication Instructions Recorded Confirmed Type amlodipine 10 mg tablet 10 mg PO DAILY 12/01/17 10/16/19 History gabapentin 100 mg capsule 200 mg PO BID 12/01/17 10/16/19 History omeprazole 20 mg capsule,delayed 20 mg PO DAILY 12/01/17 10/16/19 History release ondansetron HCl 4 mg tablet 4 mg PO BIDP PRN 12/01/17 10/16/19 History polyethylene glycol 3350 17 17 g PO DAILY 12/01/17 10/16/19 History gram/dose oral powder sennosides 8.6 mg-docusate sodium 1 tab PO BIDP PRN 12/01/17 10/16/19 History 50 mg tablet Aspirin [Aspirin 81mg chewable 81 mg PO DAILY 12/17/17 10/16/19 History tab] Clopidogrel Bisulfate [Plavix 75mg 75 mg PO DAILY 04/04/18 10/16/19 History Tab] Ammonium Lactate [Amlactin] 0 gm TP BIDP PRN 04/05/18 10/16/19 History Escitalopram Oxalate [Lexapro] 20 mg PO DAILY 04/05/18 10/16/19 History Hydrocod/Acet 5/325 mg [[place] 1.5 tab PO Q8HP PRN 04/05/18 10/17/19 History 5/325mg tablet] Phenol [Chloraseptic] 1 spray MM TIDP PRN 04/05/18 10/16/19 History Polyvinyl Alcohol [Tears Again] 1 - 2 drops OP QIDP PRN 04/05/18 10/16/19 History Trazodone HCl 50 mg PO HS 04/05/18 10/16/19 History Acetaminophen [Pain & Fever] 500 mg PO BID 10/16/19 10/16/19 History Acetaminophen [Pain & Fever] 500 mg PO QIDP PRN 10/16/19 10/16/19 History Guaifen/Dextromethorphan/PE 10 ml PO QIDP PRN 10/16/19 10/16/19 History [Tussin Cf Cough-Cold Liquid] Insulin Aspart Prot/Insuln Asp 0 unit SQ BID 10/16/19 10/16/19 History [Novolog Mix 70/30 Flexpen 100 Units/mL 3mL] Insulin Aspart Prot/Insuln Asp 26 unit SQ PM 10/16/19 10/16/19 History [Novolog Mix 70/30 Flexpen 100 Units/mL 3mL] Insulin Aspart Prot/Insuln Asp 34 unit SQ DAILY 10/16/19 10/16/19 History [Novolog Mix 70/30 Flexpen 100 Units/mL 3mL] Lidocaine [Lidocaine 5% ointment 0 gm TP BIDP PRN 10/16/19 10/16/19 History 35gm tube] Loperamide HCl [Imodium 2 mg 2 mg PO Q6HP PRN 10/16/19 10/16/19 History capsule] Mag Hydrox/Aluminum Hyd/Simeth [Mi 20 ml PO Q4HP PRN 10/16/19 10/16/19 History Acid Suspension] Petrolatum,White [White Petrolatum] 0 gm TP BIDP PRN 10/16/19 10/16/19 History Rosuvastatin Calcium [Crestor 10mg 10 mg PO HS 10/16/19 10/16/19 History Tablets] Trolamine Salicylate [Aspercreme 0 gm TP TIDP PRN 10/16/19 10/16/19 History 10% 85gm tube] Prescriptions/Medication Reconciliation: Continued amlodipine 10 mg tablet 10 mg PO DAILY gabapentin 100 mg capsule 200 mg PO BID polyethylene glycol 3350 17 gram/dose oral powder 17 g PO DAILY omeprazole 20 mg capsule,delayed release 20 mg PO DAILY sennosides 8.6 mg-docusate sodium 50 mg tablet 1 tab PO BIDP PRN PRN Reason: STOOL SOFTENER ondansetron HCl 4 mg tablet 4 mg PO BIDP PRN PRN Reason: Nausea Escitalopram Oxalate [Lexapro] 20 mg PO DAILY Polyvinyl Alcohol [Tears Again] 1 - 2 drops OP QIDP PRN PRN Reason: DRY EYES Trazodone HCl 50 mg PO HS Insulin Aspart Prot/Insuln Asp [Novolog Mix 70/30 Flexpen 100 Units/mL 3mL] 34 unit SQ DAILY Trolamine Salicylate [Aspercreme 10% 85gm tube] 0 gm TP TIDP PRN PRN Reason: pain Lidocaine [Lidocaine 5% ointment 35gm tube] 0 gm TP BIDP PRN PRN Reason: pain Loperamide HCl [Imodium 2 mg capsule] 2 mg PO Q6HP PRN PRN Reason: Diarrhea Rosuvastatin Calcium [Crestor 10mg Tablets] 10 mg PO HS Acetaminophen [Pain & Fever] 500 mg PO BID Hydrocod/Acet 5/325 mg [[place] 5/325mg tablet] 1.5 tab PO Q8HP PRN PRN Reason: pain Ammonium Lactate [Amlactin] 0 gm TP BIDP PRN PRN Reason: DRY/ITCHING Phenol [Chloraseptic] 1 spray MM TIDP PRN PRN Reason: Sore Throat Insulin Aspart Prot/Insuln Asp [Novolog Mix 70/30 Flexpen 100 Units/mL 3mL] 26 unit SQ PM Petrolatum,White [White Petrolatum] 0 gm TP BIDP PRN PRN Reason: Skin Irritation Acetaminophen [Pain & Fever] 500 mg PO QIDP PRN PRN Reason: fever/pain Guaifen/Dextromethorphan/PE [Tussin Cf Cough-Cold Liquid] 10 ml PO QIDP PRN PRN Reason: cough/cold Mag Hydrox/Aluminum Hyd/Simeth [Mi Acid Suspension] 20 ml PO Q4HP PRN PRN Reason: heartburn/indigestion Insulin Aspart Prot/Insuln Asp [Novolog Mix 70/30 Flexpen 100 Units/mL 3mL] 0 unit SQ BID Discontinued Clopidogrel Bisulfate [Plavix 75mg Tab] 75 mg PO DAILY Aspirin [Aspirin 81mg chewable tab] 81 mg PO DAILY - Problem Reconciliation Problems Reviewed?: Yes
== END 2019-10-20 10:25 ==
LOC: RAD 10:34 → 2ND 10:34
PROVIDERS: ADMIT Internal Medicine Adolescent Medicine; ATTEND Internal Medicine Adolescent Medicine
CPT/HCPCS: 36415; 74176; 76856; 80048; 82272; 82962; 85014; 85018; 85025; 85610; 86850; 88305; 94761; G0328; G0378; J2405; P9016

== ENCOUNTER → 2020-01-14 15:19 | Outpatient (CLI) | payer MEDICARE, OTHER, SELFPAY ==
[2020-01-14 15:33] LABS: Basophils # 0.2 K/mm3 (0-0.2); Basophils % 2.3 % (0.1-2.0); Eosinophils # 0.2 K/mm3 (0.0-0.4); Eosinophils % 2.7 % (0.1-12.0); Hematocrit 34.4 % (37.0-47.0); Hemoglobin 11.2 g/dL (12.2-16.2); Lymphocytes # 2.9 K/mm3 (0.7-4.5); Lymphocytes % 40.6 % (10-50); Mean Corpuscular HGB Conc 32.4 g/dL (31.8-35.4); Mean Corpuscular Hemoglobin 30.2 pg (27.0-31.2); Mean Platelet Volume 7.6 fl (7.4-10.4); Monocytes # 0.4 K/mm3 (0.1-1.0); Monocytes % 5.6 % (1.7-9.3); Neutrophils # 3.4 K/mm3 (1.8-7.8); Neutrophils % 48.8 % (37.0-80.0); Platelet Count 275 K/mm3 (142-424)
[2020-01-14 15:38] LABS: Chloride 102 mmol/L (98-107); Sodium 141 mmol/L (136-145)
[2020-01-14 15:39] LABS: Potassium 4.2 mmoL/L (3.5-5.1)
[2020-01-14 15:41] LABS: Alanine Aminotransferase 14 U/L (12-78); Alkaline Phosphatase 80 U/L (38-126); Anion Gap 14.2 mEq/L (5-15); Aspartate Amino Transferase 22 U/L (14-36); Bilirubin,Total 0.5 mg/dl (0.2-1.3); Blood Urea Nitrogen 21 mg/dl (7-17); Carbon Dioxide 29 mmol/L (22.0-30.0); Estimated Glomerular Filt Rate 39 ml/min (>60); GFR (African American) 48 ML/MIN (>60)
[2020-01-14 15:42] LABS: Albumin/Globulin Ratio 1.1 (1.1-1.8); Calcium 9.3 mg/dl (8.4-10.2); Globulin 3.8 g/dL (1.3-3.2); Glucose 222 mg/dl (74-100); Total Protein,Serum 7.8 g/dl (6.3-8.2)
== END ==
PROVIDERS: Visit Provider Nurse Practitioner Family
DX: E78.5 Hyperlipidemia, unspecified (principal); I10 Essential (primary) hypertension
CPT/HCPCS: 80053; 85025